=== PATIENT | male | born 1950 | race Caucasian/White ===

== ENCOUNTER → 2016-06-12 | Outpatient (CLI) | payer MEDICAID ==
[~2016-06-12] MED LIST: LIDOCAINE 1% 30 ML SDV ONE; NA BICARBONATE 50 MEQ/50 ML VIAL ONE; [UNRECOGNIZED DRUG - MIXTURE] IT ONE
[2016-06-12 11:31] LABS: PROTEIN, CSF 91 mg/dL (12-60)
[2016-06-12 11:59] LABS: CSF APPEARANCE CLEAR (CLEAR); CSF COLOR COLORLESS (COLORLESS); CSF SUPERNATANT COLORLESS (COLORLESS); WBC, CSF 19 /mm3 (0-5)
--- NOTE | 2016-06-12 16:28 | DX ---
Intrathecal Chemotherapy via Lumbar Puncture Under Fluoroscopic Guidance History: Lymphoma Witnessed Consent: Witnessed informed consent was obtained after the risks, benefits, and alternative s of intrathecal chemotherapy via lumbar puncture under fluoroscopic guidance were explained to the p atient and all questions were answered. Fluoroscopy time: 0.3 minutes. 4.7 mGy. Procedure: Utilizing sterile technique and fluoroscopic guidance the back was prepped in usual fashio n. Lidocaine with bicarbonate was used for local anesthesia. A 22-gauge spinal needle was advanced in to the left L4-L5 interlaminar space with clear cerebrospinal fluid identified. A total of 10 mL of c erebrospinal fluid was placed in four tubes and sent to cytology for analysis. Intrathecal cytarabine liposome 50 mg chemotherapy was slowly administered. Needle was removed. Patient tolerated the proce dure well without complications. Discharge instructions were given. Impression: 1. Successful intrathecal chemotherapy via lumbar puncture under fluoroscopic guidance. 2. Cerebrospinal fluid was clear. 3. No immediate complications. Crosscutting Measure #226: Current tobacco user: Yes. Patient was told to speak with primary care pro vider about cessation counseling.
[2016-06-13 15:57] LABS: FINAL DIAGNOSIS See Comments (()); MICROSCOPIC DESCRIPTION See Comments (()); SPECIAL STUDIES See Comments (())
== END ==
LOC: FIMAGING 08:30
PROVIDERS: ATTEND Internal Medicine Hematology & Oncology
PROC: 009U3ZX Drainage of Spinal Canal, Percutaneous Approach, Diagnostic (ICD-10-PCS; principal; 2016-06-12)
PROC: 3E0R305 Introduction of Other Antineoplastic into Spinal Canal, Percutaneous Approach (ICD-10-PCS; 2016-06-12)
DX: Z51.11 Encounter for antineoplastic chemotherapy (principal); C85.90 Non-Hodgkin lymphoma, unspecified, unspecified site; Z01.812 Encounter for preprocedural laboratory examination
CPT/HCPCS: 85060-90; 88184-90; 88185-91; J9098

== ENCOUNTER 2016-06-30 09:59 | Inpatient (IN) | payer MEDICAID ==
[2016-06-30 11:21] LABS: % IMMATURE GRANULYOCYTES 0.3 % (0.0-1.1); ABSOLUTE IMMATURE GRANULOCYTES 0.02 10^3/uL (0.00-0.10); ADD DIFF? NO; ADD MORPH? NO; ADD SCAN? NO; ATYPICAL LYMPHOCYTE FLAG 0 (0-99); FRAGMENT RBC FLAG 10 (0-99); HEMATOCRIT 41.9 % (40.0-51.0); HEMOGLOBIN 14.9 g/dL (13.7-17.5); LEFT SHIFT FLG 0 (0-99); LIPEMIA HEMOLYSIS FLAG 90 (0-99); MEAN CELL HEMOGLOBIN 34.9 pg (27.9-34.1); MEAN CELL HEMOGLOBIN CONCENTR. 35.6 g/dL (32.4-36.7); MEAN CELL VOLUME 98.1 fL (81.5-99.8); MEAN PLATELET VOLUME 9.5 fL (8.7-11.7); PLATELET CLUMPS FLAG 0 (0-99); PLATELET COUNT 240 10^3/uL (150-400); RED BLOOD CELL COUNT 4.27 10^6/uL (4.40-6.38); RED CELL DISTRIBUTION WIDTH 14.8 % (11.5-15.2)
[2016-06-30] MEDS ORDERED: LIDOCAINE 1% 30 ML SDV ONE (11:23)
[2016-06-30] MEDS ORDERED: NA BICARBONATE 50 MEQ/50 ML VIAL ONE (11:24)
[2016-06-30 11:44] LABS: APTT 22.9 SEC (23.0-38.0)
[2016-06-30 12:03] LABS: ANION GAP 6 mEq/L (8-16); CALCIUM 9.2 mg/dL (8.5-10.4); CARBON DIOXIDE 27 mEq/l (22-31); CHLORIDE 106 mEq/L (97-110); CREATININE 0.6 mg/dL (0.7-1.3); GLOMERULAR FILTRATION RATE > 60; GLUCOSE 98 mg/dL (70-100); POTASSIUM 4.6 mEq/L (3.5-5.2); SODIUM 139 mEq/L (134-144)
[2016-06-30 12:06] LABS: PROTIME(PATIENT) 13.1 SEC (12.0-15.0)
[2016-06-30] MEDS ORDERED: [UNRECOGNIZED DRUG - MIXTURE] IT ONE (12:30)
[2016-06-30] MEDS: SODIUM BICARBONATE 150 MEQ in D5W 1,000 ML IV SCH ×2 (13:44→22:22)
[2016-06-30] MEDS ORDERED: ACETAMINOPHEN 325 MG TAB PO SCH (13:45)
[2016-06-30] MEDS ORDERED: ACETAMINOPHEN 325 MG TAB PO PRN (13:50)
[2016-06-30] MEDS ORDERED: ONDANSETRON 4 MG/2 ML VIAL IVP PRN (13:50)
[2016-06-30] MEDS ORDERED: ONDANSETRON DISINTEGRATING 4 MG TAB PO PRN (13:50)
[2016-06-30] MEDS ORDERED: RITUXIMAB IV SCH (14:00)
[2016-06-30] MEDS ORDERED: NS IV SCH ×2 (14:00→22:00)
[2016-06-30 14:18] LABS: CSF APPEARANCE CLEAR (CLEAR); CSF COLOR COLORLESS (COLORLESS); WBC, CSF 0 /mm3 (0-5)
--- NOTE | 2016-06-30 14:23 | PDGENHP ---
History and Physical - Chief Complaint LLE pain and swelling - History of Present Illness 65 yo male with h/o diffuse large B cell lymphoma presents to hospital for direct admission due to increasing pain and swelling of LLE. He had a CT in 2016 which showed increasing LAD, worse in the left groin. Over the past 3 days , this has become much more painful with LLE swelling. No fevers or chills. He is directly admitted from the [facility] to start inpatient chemotherapy. History Information - Allergies/Home Medication List Allergies/Adverse Reactions: hydrocodone bitartrate [From Vicodin] Allergy (Intermediate, Verified 05/03/16 17:01) Rash ibrutinib [From Imbruvica] Allergy (Mild, Verified 05/03/16 17:01) Rash Home Medications: Ascorbic Acid [Vitamin C 500 mg (*)] 500 mg PO DAILY 06/30/16 [Last Taken ] Cyanocobalamin [Vitamin B12 (*)] 1,000 mcg PO DAILY 06/30/16 [Last Taken ] Gabapentin [Neurontin] 600 mg PO QID 06/30/16 [Last Taken 06/30/16] Herbals/Supplements -Info Only 1 ea PO DAILY 06/30/16 [Last Taken 06/30/16] Vitamin B Complex [B Complex] 1 each PO DAILY 06/30/16 [Last Taken 06/30/16] I have personally reviewed and updated: family history, medical history, social history, surgical history - Past Medical History Additional medical history: Lymphoma, waldenstrom's macroglobulinemia, Vit B12 deficiency - Surgical History Reports: no pertinent surgical hx - Family History Additional family history: father of MA - Social History Smoking Status: Former smoker Drug Use: None Review of Systems ROS: 10pt was reviewed & negative except for what was stated in HPI & below Physical Exam Temp Pulse Resp BP Pulse Ox 36.5 C 79 14 128/68 H 94 06/30/16 13:52 06/30/16 13:52 06/30/16 13:52 06/30/16 13:52 06/30/16 13:52 Constitutional: no apparent distress Eyes: PERRL Ears, Nose, Mouth, Throat: moist mucous membranes Cardiovascular: regular rate and rhythym, no murmur, rub, or gallop Respiratory: no respiratory distress, no rales or rhonchi Gastrointestinal: normoactive bowel sounds, soft, non-tender abdomen Genitourinary: other (tender palpable mass in left groin) Musculoskeletal: other (LLE with edema, mild posterior erythema) Neurologic: AAOx3 Psychiatric: interacting appropriately Lab Data & Imaging Review 06/30/16 10:55 06/30/16 10:55 WBC 6.94 10^3/uL (3.80-9.50) 06/30/16 10:55 RBC 4.27 10^6/uL (4.40-6.38) L 06/30/16 10:55 Hgb 14.9 g/dL (13.7-17.5) 06/30/16 10:55 Hct 41.9 % (40.0-51.0) 06/30/16 10:55 MCV 98.1 fL (81.5-99.8) 06/30/16 10:55 MCH 34.9 pg (27.9-34.1) H 06/30/16 10:55 MCHC 35.6 g/dL (32.4-36.7) 06/30/16 10:55 RDW 14.8 % (11.5-15.2) 06/30/16 10:55 Plt Count 240 10^3/uL (150-400) 06/30/16 10:55 MPV 9.5 fL (8.7-11.7) 06/30/16 10:55 Neut % (Auto) 78.5 % (39.3-74.2) H 06/30/16 10:55 Lymph % (Auto) 6.5 % (15.0-45.0) L 06/30/16 10:55 Cedar % (Auto) 12.7 % (4.5-13.0) 06/30/16 10:55 Eos % (Auto) 1.4 % (0.6-7.6) 06/30/16 10:55 Baso % (Auto) 0.6 % (0.3-1.7) 06/30/16 10:55 Nucleat RBC Rel Count 0.0 % (0.0-0.2) 06/30/16 10:55 Absolute Neuts (auto) 5.45 10^3/uL (1.70-6.50) 06/30/16 10:55 Absolute Lymphs (auto) 0.45 10^3/uL (1.00-3.00) L 06/30/16 10:55 Absolute Monos (auto) 0.88 10^3/uL (0.30-0.80) H 06/30/16 10:55 Absolute Eos (auto) 0.10 10^3/uL (0.03-0.40) 06/30/16 10:55 Absolute Basos (auto) 0.04 10^3/uL (0.02-0.10) 06/30/16 10:55 Absolute Nucleated RBC 0.00 10^3/uL (0-0.01) 06/30/16 10:55 Immature Gran % 0.3 % (0.0-1.1) 06/30/16 10:55 Immature Gran # 0.02 10^3/uL (0.00-0.10) 06/30/16 10:55 PT 13.1 SEC (12.0-15.0) 06/30/16 10:55 INR 1.00 (0.83-1.16) 06/30/16 10:55 APTT 22.9 SEC (23.0-38.0) L 06/30/16 10:55 Sodium 139 mEq/L (134-144) 06/30/16 10:55 Potassium 4.6 mEq/L (3.5-5.2) 06/30/16 10:55 Chloride 106 mEq/L (97-110) 06/30/16 10:55 Carbon Dioxide 27 mEq/l (22-31) 06/30/16 10:55 Anion Gap 6 mEq/L (8-16) L 06/30/16 10:55 BUN 15 mg/dL (7-23) 06/30/16 10:55 Creatinine 0.6 mg/dL (0.7-1.3) L 06/30/16 10:55 Estimated GFR > 60 06/30/16 10:55 Glucose 98 mg/dL (70-100) 06/30/16 10:55 Calcium 9.2 mg/dL (8.5-10.4) 06/30/16 10:55 Patient ABO/Rh A POSITIVE 06/30/16 10:55 Antibody Screen NEGATIVE 06/30/16 10:55 Assessment & Plan Assessment: Diffuse large B-cell lymphoma of lymph nodes of multiple sites (Acute 10/15/15) Leg swelling (Acute) History of lymphoma (Chronic 12/18/14) Leg weakness, bilateral (Chronic) Peripheral neuropathy Reviewed recent notes / imaging from [facility]. CT 06/06/2016 showed left groin LAD, which has likely worsened, possibly causing venous compression and contributing to LLE swelling. -Start chemo per oncology -Chest/abd/pelvis CT to assess spread of disease given dramatic increase in LAD of groin -If evidence of femoral vein compression, could consider IR consult / venogram to determine if stent would be helpful. Pt wishes for a stent, but his tumors may respond to chemo -Pain control -Cont gabapentin
[2016-06-30] MEDS ORDERED: NON-FORMULARY NEW DRUG (Gabapentin [Neurontin] 600 MG) PO SCH (16:00)
[2016-06-30] MEDS: DEXAMETHASONE 0.1% 5 ML OPHT.BTL RTEYE SCH ×3 (16:01→21:13)
[2016-06-30] MEDS: GABAPENTIN 300 MG CAP PO SCH ×2 (16:05→21:13)
--- NOTE | 2016-06-30 16:27 | DX ---
Fluoroscopically Guided Lumbar Puncture and Intrathecal Chemotherapy Administration History: 65-year-old with lymphoma . Crosscutting Measure #226: Current tobacco user: No. Comparison: None available. Procedure: Prior to the procedure, the risks and benefits, including headache, infection, and bleedin g were explained to the patient and informed written consent was obtained. An area over L4-L5 was ma rked then prepped and draped in the usual sterile fashion. Buffered lidocaine was administered super ficially for local anesthesia. Using intermittent fluoroscopic observation, a 25-gauge Rao spina l needle was advanced into the thecal sac. 12 mL of clear CSF was obtained and sent for labs. Subseq uently, 50 mg of cytarabine liposome was administered slowly. The needle was removed and a bandage ap plied. The patient tolerated the procedure well with no immediate complications. 0.3 minutes of fluoroscopy were utilized. Dose= 3.3 mGy. Impression: Fluoroscopically guided lumbar puncture and intrathecal chemotherapy administration as ab ove.
[2016-06-30] MEDS ORDERED: IOPAMIDOL (ISOVUE-300) 100 ML BTL IV ONE (17:10)
[2016-06-30] MEDS: SODIUM BICARBONATE 650 MG TAB PO SCH ×2 (18:28→21:13)
--- NOTE | 2016-06-30 18:58 | CT ---
CT Chest, With IV Contrast History: History of lymphoma. Increased lymphadenopathy. Technique: 5-mm helical images were obtained of the chest from the lung apices through the lung base s. This was done postintravenous contrast, with 90 mL Isovue-300 contrast. Multiplanar reformation was performed. Radiation dose reduction technique was utilized. Comparison: Scan from [facility] May 2016. Findings: There is a 12-mm noncalcified pulmonary nodule in the left lower lobe, similar in appearan ce. A calcified pulmonary nodule is seen medially in the right middle lobe, stable in appearance. T here is also a small 4-mm pulmonary nodule in the right upper lobe, stable. No new pulmonary nodule is visualized. There is mild atelectasis or thickening seen along the left major fissure. No eviden ce for a pleural effusion. Left axillary lymph nodes, which have increased in size, the largest measuring 2 cm. There is a soft tissue nodule posterior to the inferior right pulmonary vein, similar in size, measuring 17 mm. The heart size is within normal limits. No evidence for a pericardial effusion. No aggressive osseous lesion. Impression: 1. Increase in size of left axillary lymphadenopathy, which could be progressive lymphoma. 2. Stable soft tissue nodule posterior to the right posteroinferior pulmonary vein. Stable pulmonar y nodules. CT Scan of the Abdomen and Pelvis (With Contrast) Indication: History of lymphoma. Increased lymphadenopathy. Technique: 90 mL of Isovue-300 were given intravenously by machine power injection. Multidetector h elical CT imaging was performed from the diaphragm to the symphysis pubis. Dose reduction techniques were utilized. Comparison: CT from [facility] May 2016. Findings: Abdomen: There is a 12-mm hyperdense lesion within the right lobe of the liver, stable in appearance , likely representing a small hemangioma although nonspecific. The spleen is unremarkable. Both adr enal glands are normal in size and appearance. A small renal cortical cyst is seen at the inferior p ole of the left kidney and the superior pole of the right kidney. There are multiple large periaorti c lymph nodes seen, new or increased on today's exam, with the largest measuring 2.3 cm. Pelvis: Extensive lymphadenopathy is seen along the right and left common iliac vasculature and exte rnal iliacs. This is more predominant on the left than the right. A lymph node measured at the left common iliac artery measures 4.2 cm. Along the external iliac, two large masses, measuring 5.3 cm a nd 3.8 cm. On the right, they measure 2.6 and 2.7 cm. In the left inguinal region is a 3-cm lymph n ode. A soft tissue mass is seen at the left adductor musculature, measuring 4.7 cm. There also appe ars to be a mass just lateral and inferior to the origin of the common hamstring tendon on the left, measuring 3 cm. No evidence for a small bowel obstruction. No evidence for diverticulitis. The la nena endix is normal in size. Mild degenerative disk and degenerative joint disease is seen in the lumbar spine. Impression: Extensive increase in lymphadenopathy within the abdomen and pelvis, more predominant on the left pelvis, left hip and inguinal region, and periaortic, as above. E:allyson
--- NOTE | 2016-06-30 19:55 | GCON ---
[f rep st] CONSULTATION ONCOLOGY/HEMATOLOGY CONSULTATION. REFERRING PHYSICIAN: Cayla Ding MD REASON FOR CONSULTATION: History of diffuse large B-cell lymphoma. PRIMARY ONCOLOGIST: Dr. Jami Quesada. 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 He was on BR from January 02 through March 2015 with a partial response. He then developed progression including left orbital mass and paraneoplastic neurologic problems. He underwent XRT to the orbital mass and then on fro m May 2015, through September of 2015, with a partial response. 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 He started Rituxan plus dos e adjusted to EPOCH, but changed to R-CHOP for tolerability purposes through January of 2016. He t hen had a complete response. Thoughts were considered for transplant. He was undergoing intrathecal methotrexate and cytology had been negative, but flow continued to be positive. He was put on intra thecal DepoCyt which he has been receiving. Most recent CT chest, abdomen and pelvis done May which showed evidence of progressive disease. He was scheduled to come into the hospital elvis ier this week to start on high-dose cytarabine and methotrexate. He is also 2 weeks out from Depo-Cy t treatment. Patient was back and forth whether or not he wanted to continue intrathecal therapy due to neuropathy in left foot and pain in his hip radiating down his legs; however, after further discu ssion with Dr. Quesada, he has decided he does want treatment. He is also trying CBD oil. Currently, the patient is complaining of increased swelling in left groin and pain down the left leg. The left leg is also becoming erythematous and very tender to palpation. He denies any fevers. He denies any shortness of breath or bleeding. He denies any bone pain. PAST MEDICAL HISTORY: Lymphoplasmacytic lymphoma, diffuse large B-cell lymphoma as described per HPI . Several complications including neutropenic fever, previous admissions, moderate severe mucositis, and pancytopenia, suspected stasis dermatitis of left leg previously. He denies any recent antibiot ic use. REVIEW OF SYSTEMS: As per HPI. Otherwise, review of systems is negative. FAMILY HISTORY: Noncontributory. SOCIAL HISTORY: Current tobacco user. CURRENT MEDICATIONS: Reviewed, include acetaminophen, oxycodone, gabapentin, magnesium, and temazepa m. PHYSICAL EXAMINATION: VITAL SIGNS: Today, blood pressure 128/68, pulse of 79, respiration rate 14, satting 94% on room air. Currently, temperature is 36.5. GENERAL: This is a well-appearing man, no t in acute distress, alert and oriented. HEENT: Anicteric sclerae. Oropharynx is clear. Extraocul ar muscles intact. NECK: Supple. HEART: Regular rate and rhythm. CHEST: Clear to auscultation b ilaterally. ABDOMEN: Soft. He is tender to palpation bilateral lower quadrants and especially over the left pelvic inguinal area. He has a tender hard mass in the left pelvic area that was previousl y described on CT. EXTREMITIES: Lower extremities show left lower extremity edema with erythema ass ociated with the left groin. NEUROLOGIC: He is intact, moving all extremities. Denies current visu al changes, headache or other. LABORATORY DATA: Reviewed today and essentially stable. Creatinine 0.6. His labs from lumbar punct ure showed clear CSF, cytology is pending. He had no white blood cells detected. ASSESSMENT AND PLAN: A 65-year-old gentleman with the above-mentioned past medical history, with pro gressive diffuse large B-cell lymphoma, as well as previous positive CSF cytology. Dr. Quesada has nely ctively admitted the patient today for high-dose Elly-C, and methotrexate. This is essentially part B of HyperCVAD. He also had intrathecal chemotherapy with Depo-Cyt today and CSF is being analyzed. The patient is cycle 1, day 1 of chemotherapy today. He will receive Rituxan, methotrexate today. H is urine is being alkalized and we will start methotrexate once urine pH is greater than 7. We will continue to check methotrexate levels until they fall below 0.05. Leucovorin will be initiated 12 ho urs after finishing methotrexate. He will receive cytarabine on days 2 and 3. Depo-Cyt was given to day. Given acute lower extremity swelling, erythema and pain, we will re-image abdomen and pelvis. We nessa l also add on a CT of his chest just to get a baseline of disease status prior to initiating chemothe rapy. I feel it is likely patient's progressive left inguinal lymphadenopathy has caused compression and, therefore, leading to lower extremity swelling. I am hopeful that chemotherapy can reverse thi s and allow him some symptomatic relief. I do not think we have to consider a stent at this time. As far as neuropathy, continue outpatient medications and pain control, and then prophylaxis. He farhan uld be on Lovenox while in the hospital. We will continue to follow along with you. /[id number]/MODL
[2016-06-30] MEDS ORDERED: PALONOSETRON HCL 0.25 MG/5 ML VIAL IVP SCH (21:30)
[2016-06-30] MEDS ORDERED: DEXAMETHASONE SOD PHOSPHATE 10 MG in NS 50 ML IV SCH (21:45)
[2016-06-30] MEDS ORDERED: METHOTREXATE SODIUM IV SCH (22:00)
[2016-07-01] MEDS ORDERED: METHOTREXATE SODIUM IV SCH
[2016-07-01] MEDS: GABAPENTIN 300 MG CAP PO SCH ×4 (06:53→20:40)
[2016-07-01] MEDS: DEXAMETHASONE 0.1% 5 ML OPHT.BTL RTEYE SCH ×2 (06:53→11:16)
[2016-07-01] MEDS: SODIUM BICARBONATE 150 MEQ in D5W 1,000 ML IV SCH ×2 (06:58→22:53)
[2016-07-01] MEDS: CYANO/VITAMIN B12 1000 MCG TAB PO SCH (08:08)
[2016-07-01] MEDS: SODIUM BICARBONATE 650 MG TAB PO SCH ×3 (08:08→23:03)
[2016-07-01] MEDS ORDERED: ENOXAPARIN 40 MG/0.4 ML SYR SC SCH (09:00)
--- NOTE | 2016-07-01 12:21 | HOSPPROG ---
Hospitalist Progress Note Assessment/Plan: B cell lymphoma with increasing LAD causing LLE pain and swelling. CT yesterday confirmed increased size of groin LAD. Started chemo, hopefully this will decrease size of tumor and relieve his venous compression and LLE swelling. -chemo per oncology, received Rituxan yest, will start MTX once urine alkalinized to pH >7 (on bicarb drip and oral tabs), Cytarabine to follow. -leucovorin planned -u/s to r/o DVT and eval for venous compression -cont gabapentin for neuropathy DVT PPLX - Lovenox Full code Dispo - cont inpt Subjective: Pt continues to have LLE pain. No fevers/chills. Difficulty ambulating 2/2 pain. No CP or SOB. No abdominal pain, N/V/D. Tolerating po. Objective: Vital Signs Temp Pulse Resp BP Pulse Ox 36.7 C 77 17 133/62 H 94 07/01/16 07:27 07/01/16 07:27 07/01/16 07:27 07/01/16 07:27 07/01/16 07:29 Laboratory Results 06/30/16 10:55 06/30/16 10:55 06/30/16 07/01/16 07/02/16 05:59 05:59 05:59 Intake Total 2931 Output Total 1900 320 Balance 1031 -320 PT 13.1 SEC (12.0-15.0) 06/30/16 10:55 INR 1.00 (0.83-1.16) 06/30/16 10:55 - Physical Exam Constitutional: no apparent distress Eyes: PERRL Ears, Nose, Mouth, Throat: moist mucous membranes Cardiovascular: regular rate and rhythym Respiratory: no respiratory distress Gastrointestinal: normoactive bowel sounds, soft, non-tender abdomen Skin: warm Musculoskeletal: other (LLE edema from groin down to ankle) Neurologic: AAOx3 Psychiatric: interacting appropriately ICD10 Worksheet Patient Problems: Problems Problem Status Diagnosed 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
[2016-07-01] MEDS ORDERED: HEPARIN 10,000 UNIT/10 ML MDV IVP ONE (13:49)
[2016-07-01] MEDS ORDERED: HEPARIN 10,000 UNIT/10 ML MDV IVP PRN (13:49)
[2016-07-01] MEDS ORDERED: HEPARIN/DEXTROSE 500 ML IV SCH ×2 (14:00→17:00)
--- NOTE | 2016-07-01 14:45 | US ---
Left Lower Extremity Duplex Doppler Indication: Extremity swelling. Known lymphoma and iliac vein compression by CT scan. Evaluate for DV T. Comparison: CT scan from yesterday, and also from October 10, 2015. Technique: Left lower extremity duplex Doppler is performed. Findings: Indeed, patient has extensive DVT, from near the popliteal vein all the way up to the commo n femoral and involving the iliac vein. This is concordant with the yesterday's CT scan finding. Ther e is extensive amount of pelvic extrinsic compression from his lymphadenopathy. Now, there is extensi ve swelling. There is also superficial thrombophlebitis in the great saphenous vein, and some of the clot extends into the profunda. Impression: Extensive left lower extremity DVT involving the proximal vessels, from just above the po pliteal vein to the iliac vein. I believe this is largely due to extrinsic compression of the pelvic iliac system. Comment: I have discussed the above with Dr. Cayla Ding. Chemotherapy, regardless of the degree of shrinkage of lymphadenopathy, is not going to dissolve the existing clot. In addition, even with sig nificant pelvic lymph node decreasing in size, the vessels are diseased over time, and I doubt he is going to open them up completely to the normal size of an iliac vessel. Therefore, he will need to by pass and collateralize from the popliteal vein into the IVC effectively. I doubt this would happen ve ry efficiently, and I think patient has a very high chance of sustaining long-term chronic significan t left lower extremity swelling without any intervention. The downside of intervention, in this patient, of course is risk of bleeding given his lymphoma. I th ink, overall, the risk is low though, if he does not have [employer] lymphoma. Dr. Ding has asked me to consult the patient at this time regarding the above. Further discussion will take place with the patient and Dr. Vogel of oncology. The patient will remain on heparin toda y.
--- NOTE | 2016-07-01 14:51 | SOAPPROG ---
SOAP Progress Note Assessment/Plan: Assessment: Villanueva's transformation of lymphoplasmacytic lymphoma. Patient treated with BR then R-EPOCH (poor tolerance) now admitted for part B HyperCVAD. So far he is tolerating this well. He did get a DepoCyte IT injection on 06/12/2016. New acute DVT R leg due to extrinsic compression of lymph nodes in R groin. There are pros and cons to lytic therapy but in view of the fact that he has a recurrent aggressive lymphoma and we are unsure of what his response will be to current chemo, the likelihood that his platelets will fall in the next 7-10 days , and his desire to preserve as much function in his leg as possible, I think this is the window of opportunity for lytic therapy/stenting. He is aware of the potential for bleeding (including life threatening hemorrhage) with lytic therapy and wishes to proceed. Approximately 60 min was spent in data review, discussion with the patient, and in care coordination with Dr. Gill and Toña. Plan: - TPA/Stent per Dr. Gill - Continue chemotherapy Subjective: Minor diarrhea. No N/V. L leg hurts. Objective: Vital Signs Temp Pulse Resp BP Pulse Ox 36.7 C 74 16 141/67 H 91 L 07/01/16 13:00 07/01/16 13:00 07/01/16 13:00 07/01/16 13:00 07/01/16 13:00 Laboratory Results 06/30/16 10:55 06/30/16 10:55 06/29/16 06/30/16 07/01/16 23:59 23:59 23:59 Intake Total 668 2263 Output Total 1900 820 Balance -1232 1443 PT 13.1 SEC (12.0-15.0) 06/30/16 10:55 INR 1.00 (0.83-1.16) 06/30/16 10:55 Physical Exam - Physical Exam General Appearance: alert, mild distress Respiratory: lungs clear Cardiac/Chest: regular rate, rhythm Abdomen: distended Extremities: other (swollen L leg. ) Neuro/Psych: alert, oriented x 3 ICD10 Worksheet Patient Problems: Problems Problem Status Diagnosed 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
[2016-07-01] MEDS: DEXAMETHASONE 0.1% 5 ML OPHT.BTL EACHEYE SCH ×2 (15:39→21:00)
[2016-07-01 15:46] LABS: FINAL DIAGNOSIS See Comments (()); MICROSCOPIC DESCRIPTION See Comments (()); SPECIAL STUDIES See Comments (())
[2016-07-01] MEDS ORDERED: HEPARIN/DEXTROSE 25,000 UNIT/500 ML BAG IV ONE (16:34)
[2016-07-01] MEDS ORDERED: LORazepam 1 MG TAB PO PRN (16:41)
--- NOTE | 2016-07-01 16:41 | POSTOPPROG ---
Post Op Note Date of Operation: 07/01/16 Surgeon: Madhavi Gill Anesthesia: Local (Specify) (lidocaine) Pre-op Diagnosis: LLE DVT Post-op Diagnosis: same Indication: acute pain and swelling Procedure: venogram with TPA lysis Findings: Acute clot FV to iliac vein, LT, with long iliac stenosis Inf/Abcess present in the surg proc area at time of surgery?: No Depth: Superfical (Skin SQ) Complications: none
[2016-07-01] MEDS ORDERED: ALTEPLASE 5 MG in NS 100 ML IVP SCH (17:00)
[2016-07-01] MEDS ORDERED: IOPAMIDOL (ISOVUE-300) 100 ML BTL IV ONE (17:11)
[2016-07-01 17:54] LABS: INR 1.03 (0.83-1.16); PROTIME(PATIENT) 13.4 SEC (12.0-15.0)
[2016-07-01 17:56] LABS: APTT 23.9 SEC (23.0-38.0)
[2016-07-01] MEDS: ALTEPLASE 5 MG in NS 100 ML IV SCH (21:07)
[2016-07-01] MEDS: oxyCODONE IR 5 MG TAB PO PRN (21:08)
[2016-07-01] MEDS ORDERED: CYTARABINE IV SCH (22:00)
[2016-07-01] MEDS ORDERED: NS IV SCH ×2 (22:00)
[2016-07-02] MEDS: ALTEPLASE 5 MG in NS 100 ML IV SCH ×2 (01:21→05:51)
[2016-07-02] MEDS: DEXAMETHASONE 0.1% 5 ML OPHT.BTL EACHEYE SCH ×4 (04:41→23:31)
[2016-07-02] MEDS: oxyCODONE IR 5 MG TAB PO PRN (04:41)
[2016-07-02] MEDS: GABAPENTIN 300 MG CAP PO SCH ×4 (04:41→23:30)
[2016-07-02 04:43] LABS: % IMMATURE GRANULYOCYTES 0.1 % (0.0-1.1); ABSOLUTE IMMATURE GRANULOCYTES 0.01 10^3/uL (0.00-0.10); ADD DIFF? NO; ADD MORPH? NO; ADD SCAN? NO; ATYPICAL LYMPHOCYTE FLAG 0 (0-99); FRAGMENT RBC FLAG 0 (0-99); HEMOGLOBIN 12.9 g/dL (13.7-17.5); LEFT SHIFT FLG 0 (0-99); LIPEMIA HEMOLYSIS FLAG 90 (0-99); MEAN CELL HEMOGLOBIN 35.2 pg (27.9-34.1); MEAN CELL HEMOGLOBIN CONCENTR. 35.8 g/dL (32.4-36.7); MEAN CELL VOLUME 98.4 fL (81.5-99.8); MEAN PLATELET VOLUME 9.6 fL (8.7-11.7); PLATELET CLUMPS FLAG 10 (0-99); PLATELET COUNT 170 10^3/uL (150-400); RED BLOOD CELL COUNT 3.66 10^6/uL (4.40-6.38); RED CELL DISTRIBUTION WIDTH 14.5 % (11.5-15.2)
[2016-07-02 04:53] LABS: APTT 33.4 SEC (23.0-38.0)
[2016-07-02] MEDS: SODIUM BICARBONATE 150 MEQ in D5W 1,000 ML IV SCH ×3 (06:03→23:32)
[2016-07-02] MEDS: DEXAMETHASONE SOD PHOSPHATE 10 MG in NS 50 ML IV SCH (09:17)
[2016-07-02] MEDS: SODIUM BICARBONATE 650 MG TAB PO SCH ×3 (09:17→23:31)
[2016-07-02] MEDS: CYANO/VITAMIN B12 1000 MCG TAB PO SCH (09:17)
--- NOTE | 2016-07-02 09:21 | HOSPPROG ---
Hospitalist Progress Note Assessment/Plan: B cell lymphoma with increasing LAD, causing LLE pain and swelling. He had previously been treating his lymphoma with cannabis oil, but with increased LAD and pain, he opted to resume chemo and was admitted for management. CT on admission confirmed increased size of groin LAD. Started chemo inpt. -chemo per oncology, received Rituxan, followed by MTX, Cytarabine to follow. -leucovorin planned LLE DVT - Extensive, most certainly due to compressive adenopathy of LLE. Discussed with IR and Onc, started tPa lysis yesterday. -return to IR today for venogram, possible stenting Peripheral neuropathy - continue gabapentin, change to QID Full code Dispo - cont inpt, ICU while on tPa Subjective: PT feels okay. Still some pain in LLE. No fevers/chills. Able to ambulate with difficulty. No CP or SOB. Slept poorly last night. Objective: Vital Signs Temp Pulse Resp BP Pulse Ox 36.9 C 60 11 L 123/52 H 96 07/02/16 04:00 07/02/16 06:00 07/02/16 06:00 07/02/16 06:00 07/02/16 06:00 Laboratory Results 07/02/16 04:35 06/30/16 10:55 07/01/16 07/02/16 07/03/16 05:59 05:59 05:59 Intake Total 2931 3700 Output Total 1900 2870 Balance 1031 830 PT 13.4 SEC (12.0-15.0) 07/01/16 16:52 INR 1.03 (0.83-1.16) 07/01/16 16:52 - Physical Exam Constitutional: no apparent distress Eyes: PERRL Ears, Nose, Mouth, Throat: moist mucous membranes Cardiovascular: regular rate and rhythym Respiratory: no respiratory distress, clear to auscultation Gastrointestinal: normoactive bowel sounds, soft, non-tender abdomen Skin: warm Musculoskeletal: other (LLE with persistent edema, left groin LAD with tenderness, no warmth or erythema, 2+ DP's) Neurologic: AAOx3 Psychiatric: interacting appropriately ICD10 Worksheet Patient Problems: Problems Problem Status Diagnosed 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
[2016-07-02] MEDS ORDERED: LEUCOVORIN CALCIUM IV SCH ×2 (10:00→16:00)
[2016-07-02] MEDS ORDERED: NS IV SCH ×2 (10:00→16:00)
[2016-07-02] MEDS ORDERED: FLUMAZENIL 0.5 MG/5 ML MDV IVP ONE (10:14)
[2016-07-02] MEDS ORDERED: NALOXONE HCL 0.4 MG/ML INJ ONE (10:14)
[2016-07-02] MEDS ORDERED: fentaNYL 100 MCG/2 ML INJ ONE ×3 (10:15→11:50)
[2016-07-02] MEDS ORDERED: MIDAZOLAM 2 MG/2 ML VIAL ONE ×2 (10:15→11:31)
[2016-07-02] MEDS: CYTARABINE IV SCH ×2 (10:24→23:59)
[2016-07-02] MEDS: NS IV SCH ×2 (10:24→23:59)
[2016-07-02] MEDS ORDERED: IOPAMIDOL (ISOVUE-300) 100 ML BTL IV ONE ×2 (10:32→12:59)
[2016-07-02] MEDS ORDERED: LEUCOVORIN 25 MG PO ONE (12:00)
[2016-07-02] MEDS ORDERED: HEPARIN 10,000 UNIT/10 ML MDV IVP PRN (12:20)
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
[2016-07-02] MEDS: HYDROmorphONE/DILAUDID 1 MG/ML SYR IVP PRN ×3 (13:05→20:16)
[2016-07-02 13:29] LABS: % IMMATURE GRANULYOCYTES 0.2 % (0.0-1.1); ABSOLUTE IMMATURE GRANULOCYTES 0.02 10^3/uL (0.00-0.10); ADD DIFF? NO; ADD MORPH? NO; ADD SCAN? NO; ATYPICAL LYMPHOCYTE FLAG 0 (0-99); FRAGMENT RBC FLAG 0 (0-99); HEMATOCRIT 38.8 % (40.0-51.0); HEMOGLOBIN 13.7 g/dL (13.7-17.5); LEFT SHIFT FLG 0 (0-99); LIPEMIA HEMOLYSIS FLAG 90 (0-99); MEAN CELL HEMOGLOBIN 34.8 pg (27.9-34.1); MEAN CELL HEMOGLOBIN CONCENTR. 35.3 g/dL (32.4-36.7); MEAN CELL VOLUME 98.5 fL (81.5-99.8); MEAN PLATELET VOLUME 9.7 fL (8.7-11.7); PLATELET CLUMPS FLAG 10 (0-99); PLATELET COUNT 164 10^3/uL (150-400); RED BLOOD CELL COUNT 3.94 10^6/uL (4.40-6.38); RED CELL DISTRIBUTION WIDTH 14.6 % (11.5-15.2)
[2016-07-02] MEDS ORDERED: HEPARIN/DEXTROSE 500 ML IV SCH (13:30)
[2016-07-02 13:36] LABS: INR 1.27 (0.83-1.16); PROTIME(PATIENT) 15.9 SEC (12.0-15.0)
[2016-07-02 13:37] LABS: APTT 31.3 SEC (23.0-38.0)
--- NOTE | 2016-07-02 13:37 | IR ---
Lysis Follow-Up Venography Iliac Stent Placement, Left Indication: 18 hours post TPA lysis for extensive left lower extremity acute thrombus. High-grade rojas ac compression due to extrinsic masses from lymphoma. Informed Consent: Obtained from the patient. Risks and benefits were discussed. Crosscutting Measure: Patient's current list of medications including all known prescriptions, over- the-counters, herbals, and vitamin/mineral/dietary supplements are reviewed. Medications' name, dosa ge, frequency, and route of administration are confirmed. The patient is a non-smoker. Prophylactic Antibiotic: Cefazolin was not ordered and administered for antimicrobial prophylaxis be cause it was not medically necessary. VTE Prophylaxis: There is not an order for VTE prophylaxis to be given within 24 hours of the proced ure end time. VTE prophylaxis was not given because it was not medically necessary. Technique: Patient is placed in prone position. A "timeout" procedure was performed to identify the correct patient and the correct procedure. 1% Xylocaine was used for local anesthetic. All elemen ts of maximal sterile barrier technique including cap, mask, sterile gown, sterile gloves, large ster ile sheet, hand hygiene, and 2% chlorhexidine for cutaneous antisepsis followed. Existing infusion catheter is removed over an exchange length Amplatz wire. A long, 7-Eritrean, 55 cm v ascular sheath is advanced after local anesthetics. Venogram is performed through the sidearm of the sheath, as the sheath is pulled down. This shows near complete clot resolution in the femoral system, high-grade stenoses with irregularities in the iliac system consistent with extrinsic compression. First, a 14 x 16 mm LifeStent is loaded and deployed at the junction of the IVC and the left common i liac vein. Post deployment, there is excellent immediate opening of the common iliac stricture. Howev er, within about less than a minute, the stricture returns because of the degree of extrinsic felicia donavan. I continued to complete the stenting process for the rest of the iliac vein using another 14 mm x 40 cm LifeStent, extending down to the external iliac vein. This covered the second area of stricture. There continues to be irregularity at the bottom stent, while the top stent is mostly crimped at the midportion. Subsequently, a third balloon expandable stiff stent, atrium, 10 x 38 mm was loaded and advanced to o verlap the high-grade common iliac stricture. With balloon deployment of this, followed by reangiopla sty using a 12 x 40 mm balloon, this iliac stricture resolved. I did some additional work at the lower stent at the external iliac segment. The distal portion of th e stent opened up nicely with initial deployment. It is the rest of it that continues to have some ir regularity. It is hard for me to figure out whether this is thrombus, mass, and clot that is trapped between the wall and the stent or dissection. Nonetheless, there is rapid antegrade clearance of any injected contrast.. This location also correlates to near complete absence of the external iliac vein by the CT. There is some very large bulky adenopathy in this location. Again, repeat lower extremity venogram is performed from the level of the knee to the IVC showing rap id antegrade drainage. The overall outflow is significantly improved. What is left or trapped behind the lower external iliac stent will dissolve over time with anticoagulation. A branch of the iliac ve in that was previously there on the pre-stent deployment venogram, persisted on the post-stent deploy ment, which indirectly indicates intraluminal placement of the stent. Catheters and wires were removed. Hemostasis was obtained using pressure holding. There is significan t decrease collateralization in the humeral level on the post venogram, indicating sufficient antegra de drainage via this channel that is established. Patient tolerated the procedure well. Medication: 1.5 mg Versed, 250 mcg fentanyl, 1115 to 1214. Fluoroscopy: 11.8 minutes, 32 images. Impression: 1. Complete clot lysis. 2. High-grade stricture that was resistant to self-expanding stent placement at the iliac system, sub sequently supported with placement of a balloon expandable stiff covered stent. 3. Patient received a total of three stents between the common iliac vein and the external iliac vein . 4. Rapid antegrade drainage. This should help the swelling significantly. Comment: 1. Patient does have some low-grade left lower lobe abdominal pain. My threshold for obtaining a nonc ontrast CT scan of the abdomen and pelvis would be low for evaluation of retroperitoneal bleed. This is because some tissue blush was seen on the initial venogram that comes from branches off of the ex ternal iliac vein. 2. In addition, to optimize drainage, sequential compression stocking device while patient is in bed is recommended. 3. Last but not least, full system anticoagulation with heparin is also recommended for this short ti me while transitioning to a long-term anticoagulation method, as patient is at a high risk for recurr ence of clot within the next few weeks.
--- NOTE | 2016-07-02 14:26 | SOAPPROG ---
[facility] Progress Note Assessment/Plan: Assessment: This is a highly complex clinical situation. The patient requires critical care monitoring at this time. Villanueva's transformation of lymphoplasmacytic lymphoma. Patient treated with BR then R-EPOCH (poor tolerance) now admitted for part B HyperCVAD. So far he is tolerating this well. He did get a DepoCyte IT injection on 06/12/2016. High dose methotrexate finished at ~0140 last night. He received his loading dose of leucovorin (50mg) at ~2PM today. He will continue with leucovorin q6h as ordered. He will get his first methotrexate level tonight at ~ midnight. New acute DVT R leg due to extrinsic compression of lymph nodes in R groin. He had ~18 hours of lytic therapy. He then had 3 stents placed. Drainage is now good per report. He has increased abdominal and L groin pain. We will watch him in the ICU today and have a low threshold for reimaging for a retroperitoneal bleed. Will watch serial hematocrits. He will need jail anticoagulation with coumadin. Plan: - watch in ICU for now - serial H/H - Leucovorin as ordered - Monitor MTX levels Subjective: c/o pain in LLQ abdomen and L groin Objective: Vital Signs Temp Pulse Resp BP Pulse Ox 37.2 C 57 L 12 149/59 H 99 07/02/16 08:00 07/02/16 13:59 07/02/16 13:59 07/02/16 13:59 07/02/16 13:59 Laboratory Results 07/02/16 13:15 06/30/16 10:55 06/30/16 07/01/16 07/02/16 23:59 23:59 23:59 Intake Total 668 2263 3700 Output Total 1900 1370 1800 Balance -7618 815 6830 PT 15.9 SEC (12.0-15.0) H 07/02/16 13:15 INR 1.27 (0.83-1.16) H 07/02/16 13:15 Physical Exam - Physical Exam General Appearance: moderate distress Respiratory: lungs clear Cardiac/Chest: regular rate, rhythm Abdomen: distended, other (mild to moderate tenderness without rebound tenderness) Extremities: swelling (L leg swollen. 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
[2016-07-02 15:44] LABS: HEMATOCRIT 38.6 % (40.0-51.0); HEMOGLOBIN 13.6 g/dL (13.7-17.5)
[2016-07-02] MEDS: PROMETHAZINE HCL 25 MG/ML INJ IVP PRN (19:08)
--- NOTE | 2016-07-02 19:54 | CT ---
"CT Abdomen and Pelvis (Without Contrast) July 02, 2016 at 1811 Hours History: Left abdominal pain, suspect retroperitoneal hemorrhage. Lymphoma. Comparison: CT dated June 30, 2016. Technique: Spiral images were acquired from the upper abdomen through the pelvis without intravenous or oral contrast which limits the study. Dose reduction techniques were utilized. Findings Abdomen: Small pericardial effusion. New small bilateral pleural effusions with bilateral lower lobe passive atelectasis. Minimal ascites around the liver. No hepatosplenomegaly. No adrenal enlargement. Contrast in both kid neys from recent angiogram. Moderate atherosclerotic aorta without aneurysm. No bowel obstruction. No peripancreatic fluid. Limited due to lack of intravenous contrast. Oral contrast from prior study wi thin the colon. A left-sided retroperitoneal hemorrhage anterior to the left psoas muscle, measuring 7 x 4 cm in axia l dimension and 11 cm in cephalocaudal dimension. Persistent left paraaortic retroperitoneal adenopat hy and left iliac pelvic adenopathy again noted, consistent with lymphoma. A left lower lobe 12 mm pu lmonary nodule again noted. Pelvis: Contrast in the bladder. A left inferior vena cava and common iliac vein stents noted with s evere stenosis of the left external iliac vein component on image 226 of series 4. Bilateral external iliac adenopathy and common iliac adenopathy again identified. Left inguinal adenopathy also noted. Left proximal thigh edema noted. Impression: 1. Left retroperitoneal hematoma, measuring 7 x 4 x 11 cm anterior to the left psoas muscle and left ureter. 2. Retroperitoneal and pelvic lymphadenopathy consistent with lymphoma. 3. Atherosclerotic aorta without aneurysm. 4. Left external iliac stent appears compressed. 5. Left lower lobe 12 mm pulmonary nodule which is nonspecific. Consider nuclear medicine PET scan im aging when the patient's medical condition permits. Patient's nurse, Medina notified at 1855 hours. Findings and recommendations discussed with Refugio La MD at 1904 hours on July 02, 2016. Final report concurs with initial preliminary interpretation. Attention: This CT examination is specifically designed to evaluate patients who are clinically susp ected of having acute obstructive uropathy. This examination does not use radiographic contrast, and as such, provides only a limited evaluation of the abdomen, pelvis, and retroperitoneum. If there i s further clinical suspicion for pathological conditions other than obstructive uropathy, a complete CT evaluation of the abdomen and pelvis utilizing intravenous, oral, and rectal contrast should be co nsidered. Dr. Madhavi Gill notified at 1905 hours. A test result has been communicated to a licensed care provider and documented in the [employer] | Critical Result system on 07/02/2016 19:09, Message ID [id number]."
[2016-07-02] MEDS: LEUCOVORIN 25 MG PO SCH ×2 (20:17→23:30)
[2016-07-02] MEDS: LEUCOVORIN 5 MG TAB PO SCH ×2 (20:17→23:29)
[2016-07-02 20:44] LABS: HEMATOCRIT 34.2 % (40.0-51.0); HEMOGLOBIN 12.1 g/dL (13.7-17.5)
[2016-07-02] MEDS ORDERED: HYDROmorphONE/DILAUDID 2 MG/ML SYR ONE (21:29)
[2016-07-02] MEDS ORDERED: CEFAZOLIN 2 GM/DEXTROSE/100 ML BAG IV ONE (22:31)
--- NOTE | 2016-07-02 22:33 | GCON ---
[f rep st] CONSULTATION CRITICAL CARE DATE OF CONSULTATION: 07/02/2016 REASON FOR CONSULTATION: Deep venous thrombosis in the left lower extremity, B-cell lymphoma. HISTORY: The patient is a pleasant 65-year-old man who has an underlying B-cell lymphoma. He is fol lowed by Oncology. He has had diffuse disease with involvement of the spleen, lymph nodes, orbit, et c. He has been treated with multiple various chemotherapeutic agents. This has included intrathecal chemotherapy. He is now on high-dose cytarabine and methotrexate. He was admitted on 06/30 with in creased swelling in his left groin and leg. He was found to have an extensive deep venous thrombosis . He was taken to Interventional Radiology for tPA lysis which was successful. He also had signific ant obstruction of the femoral vein secondary to compression from a tumor mass. This was stented wit h some difficulty today. Stenting was felt to be successful. He was returned to the intensive care unit off tPA and has been started on a heparin drip. He does report pain in the left groin and lower left quadrant area. This is somewhat cramp-like. He reports some residual pain and discomfort in his left leg. Catheter is now out. He denies any shor tness of breath or chest pain. 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 He denies other chronic medical problems. MEDICATIONS: He was taking various vitamins at home with his only medication being Neurontin. DRUG ALLERGIES: Hydrocodone, ibrutinib. Those are the only 2. SOCIAL HISTORY: The patient does have a partner. She helps care for him. He does smoke cigarettes currently. Significant alcohol is denied. FAMILY HISTORY: Noncontributory. REVIEW OF SYSTEMS: A 10-point review of systems is negative except as outlined above. PHYSICAL EXAMINATION: GENERAL: Reveals a pleasant gentleman who appears to be resting comfortably i n bed. VITAL SIGNS: Blood pressure is 160/60, heart rate 60 with sinus rhythm on the monitor, respi ratory rate is 12. On 2 L, saturations are 99%. HEENT: He appears somewhat pale. Nasal cannula is in place. NECK: There is no lymphadenopathy or thyromegaly to the neck. There is no jugular venou s distention. CHEST: Clear. Breath sounds are diminished at the bases. HEART: Regular in rate an d rhythm. There are no significant murmurs, no gallops. ABDOMEN: Somewhat distended and somewhat f irm. There is tenderness related to the left lower quadrant with fullness appreciated there. The le ft groin is somewhat tender. EXTREMITIES: The left leg is larger than the right by approximately 1 inch. There is mild tenderness over the calf to palpation where his catheter previously resided. NE UROLOGIC: Intact. Pulses are present in the left lower extremity. LABORATORY DATA: Interventional radiology issues are as outlined above. With his stent procedure, t here was opening of the iliac veins above the femoral. There was complete clot lysis. Dr. Gill was c oncerned for the possibility of a retroperitoneal bleed if hematocrit drops or if pain increases sign ificantly. She recommended sequential compression stockings of the left lower extremity to optimize flow and drainage, and full dose anticoagulation with heparin. Chest CT on admission showed axillary adenopathy, as well as a nodule in the right mediastinum. Smal l pulmonary nodules were also noted which were stable. Abdominal and pelvic CT showed significant in crease in lymphadenopathy in the abdomen and pelvis, most prominent on the left side. White blood cell count is 8500, hematocrit 38.8 today with postprocedure hematocrit essentially uncha nged at 38.6. Platelets are 164,000. PT earlier today was 15.9 with a PTT of 31. The patient is cu rrently on heparin and unfractionated heparin level is pending. Basic metabolic panel was within nor mal limits. IMPRESSION: 1. Extensive left lower extremity deep venous thrombosis secondary to compression at the iliac veins . He is status post complete tPA lysis and stent placement with patency of the iliac vein. He is on full-dose anticoagulation and sequential compression device. 2. Progressive B-cell lymphoma, now with lymphoplasmacytic transformation. He is receiving high dos e chemotherapy including intrathecal chemotherapy and methotrexate with leucovorin rescue. He is kwaku ng followed by Oncology. 3. Abdominal/groin pain. This is likely secondary to issues related to his lymphoma. He is being m onitored for the possibility of a retroperitoneal hematoma; however, hematocrit is currently stable a nd, thus, does not suggest an acute significant bleed. He will be followed overnight for this with a low threshold for obtaining a CT scan of the abdomen and pelvis. 4. Metabolic: No issues identified. 5. Chemotherapy. He is receiving high dose chemotherapy including cytarabine, dexamethasone, methot rexate with leucovorin rescue, etc. Urine is being colonized and intravenous fluids are being given. PLAN AND RECOMMENDATIONS: The patient will be kept in the intensive care unit tonight. Serial hemat ocrits will be followed closely. Clinical examination will be followed. If he has a drop in hematoc rit or significant increased pain, then a CT scan of the abdomen/pelvis will be obtained to look for a retroperitoneal bleed. Heparin is being initiated. Sequential compression devices will be used to help increase flow from the left lower extremity. Laboratory will be followed. Further plans and recommendations will be made based on his progress over the next 12-24 hours. /[id number]
[2016-07-02] MEDS: TEMAZEPAM 15 MG CAP PO PRN (23:30)
[2016-07-03 02:40] LABS: HEMATOCRIT 30.8 % (40.0-51.0); HEMOGLOBIN 10.8 g/dL (13.7-17.5)
[2016-07-03 05:51] LABS: HEMATOCRIT 27.7 % (40.0-51.0); HEMOGLOBIN 9.8 g/dL (13.7-17.5)
[2016-07-03] MEDS: PROMETHAZINE HCL 25 MG/ML INJ IVP PRN (06:07)
[2016-07-03] MEDS: GABAPENTIN 300 MG CAP PO SCH ×4 (06:19→20:39)
[2016-07-03] MEDS: LEUCOVORIN 25 MG PO SCH ×4 (06:20→23:54)
[2016-07-03] MEDS: LEUCOVORIN 5 MG TAB PO SCH ×4 (06:21→23:53)
[2016-07-03] MEDS: DEXAMETHASONE 0.1% 5 ML OPHT.BTL EACHEYE SCH ×4 (06:22→20:40)
--- NOTE | 2016-07-03 06:51 | IR ---
Left Iliac Venogram Stent Placement Indication: Patient sustained a retroperitoneal bleed as a result of the TPA lysis and heparinization earlier. Subsequently, his heparin has to be stopped. A noncontrast CT scan was performed to evaluat e his retroperitoneal bleed, and on that, it is noted that the distal portion of his stent in the ext ernal iliac vein is severely pinched due to bulky surrounding adenopathy. This explains the irregular appearance of the contrast column, that was originally thought to be due to trapped clot, at the end of the last procedure. Now the patient is off of heparin, given this high grade anatomic pinch, I feel the patient's chance of re-clotting is almost 100%. If he were to re-clot, he would no longer be a TPA candidate because o f the bleed, and mechanical thrombolysis is much less effective in removing large amount of clot, and patient will be dealing with a bleed and a very swollen leg at that time. Therefore, I made the decision to bring the patient back tonight to further evaluate the stent, and t o extend it if necessary. Informed consent: Obtained from the patient. Risks and benefits were discussed. The above was discus sed in detail with the patient, who expressed understanding and eagerness to proceed, to do anything to resolve his leg swelling. Crosscutting Measure: Patient's current list of medications including all known prescriptions, over-t he-counters, herbals, and vitamin/mineral/dietary supplements are reviewed. Medications' name, dosag e, frequency, and route of administration are confirmed. Patient is a non-smoker. Prophylactic Antibiotic: Ancef 2 g was ordered and administered for antimicrobial prophylaxis. Discontinuation of Prophylactic Antibiotic: Prophylactic antibiotic was given within 4 hours prior t o incision. There was an order to discontinue the antibiotic within 24 hours of procedure end time. VTE Prophylaxis: VTE prophylaxis is not medically necessary for this procedure. Technique: Patient is placed in supine position. A "timeout" procedure was performed to identify the correct patient and the correct procedure. 1% Xylocaine was used for local anesthetic. All elements of maximal sterile barrier technique including cap, mask, sterile gown, sterile gloves, large sterile sheet, hand hygiene, and 2% chlorhexidine for cutaneous antisepsis, followed. When ultrasound is use d, sterile gel and probe covers are used. Ultrasound evaluation of potential access site was performed. After successfully identifying a patent vessel, ultrasound guidance was used to puncture the vessel. A permanent recording was created for t he patient's record. When ultrasound is used, sterile gel and probe covers are used. I decided to approach this from a jugular approach this time. This is because the crimp at the lower end of the stent is so high grade that it was going to be challenging for me to gain intraluminal acc ess from below. Sure enough, exchange length Amplatz wire was caught in a loop at the end of the stent, with the diff iculties encountered in advancing it. 55 cm 8-[place] vascular sheath was advanced down the through th e stents, and with Glidewire and Glidecatheter, the stenosis was traversed, with Glidecatheter eventu ally advanced down to the proximal femoral vein. Biplane fluoroscopy this time was also utilized. Biplane venography performed at this time shows indeed that the access by the Glidecatheter is intral uminal in the femoral vein at the proximal thigh, with branches coming off of it. This gave me confid ence to simply extend the stent below. Because of the extending involving the hip joint, or very close to it, I decided to first put a self- expanding 12 mm stent across the joint, knowing that it would not be strenuous enough in [facility] to resolve the stricture. A 12 x 60 mm self-expanding Lifestent was loaded over exchange length A mplatz wire, and deployed, with its distal tip just at the hip joint. This overlapped the previous st ent. Next, a 10 mm x 37 mm balloon expandable biliary Express stent was loaded, and deployed. During this deployment process, it is very clear that the high grade stenosis is at the junction of the common fe moral vein and the external iliac vein. By placing the stent alone, the pinch on the lateral view was already better. A second 10 mm x 37 mm balloon expandable biliary Express stent was then loaded, and deployed on top of the first one, now completely covering the originally crimped external iliac stented segment. Post stent deployment angioplasty was performed using a 14 mm balloon, since we were out of a 12 mm b alloon this time. The 14 mm balloon is insufflated to only 6 mmHg, expanding the balloon to about a 1 2 mm diameter. A tack down angioplasty was performed throughout the entire course of the stented segm ent. At the last segment in the common iliac vein, the balloon was inflated to 8 mm pressure. With the balloon removed, Glidecatheter was readvanced down to the proximal thigh, and outflow venogr am was performed. This time, there is absolutely no irregularity. No evidence of any trapped clot. Th ere is wide open flow on both AP and lateral projection of the contrast column going from the femoral vein to IVC. Of note, there is also no extraluminal extravasation. Medication: Dilaudid 1.5 mg; 2134 to 2246. Fluoroscopy: 19 minutes, 40 images. Contrast: The total amount contrast used today between both the morning and the evening procedures is 180 mL of Isovue-300. Impression: 1. Complete closure of the distal external iliac stent that was placed earlier today, caused by extri nsic compression by tumor. 2. Extension of the stent now down to the common femoral vein just above the hip joint, using Illumioo nal three stents, both self-expanding and balloon expanding for added radial strength. 3. Now widely patent channel from the leg veins up to IVC without any irregularity whatsoever. This i s confirmed by biplane fluoroscopy. 4. Patient now has the highest chance of remaining clot free off of anticoagulation. Recommendation: 1. Apply compression stocking to both legs. STD device while in bed could be applied outside of the c ompression stocking. 2. Encourage ambulation as long as it is clinically prudent. 3. I suspect the patient will be off of anticoagulation for the amount of time that it takes to stabi lize his retroperitoneal bleed. However, his swelling should be exponentially better in a few days.
[2016-07-03 08:32] LABS: % IMMATURE GRANULYOCYTES 0.6 % (0.0-1.1); ABSOLUTE IMMATURE GRANULOCYTES 0.05 10^3/uL (0.00-0.10); ADD DIFF? NO; ADD MORPH? NO; ADD SCAN? NO; ATYPICAL LYMPHOCYTE FLAG 0 (0-99); FRAGMENT RBC FLAG 0 (0-99); HEMATOCRIT 28.4 % (40.0-51.0); HEMOGLOBIN 10.1 g/dL (13.7-17.5); LEFT SHIFT FLG 10 (0-99); LIPEMIA HEMOLYSIS FLAG 90 (0-99); MEAN CELL HEMOGLOBIN 34.1 pg (27.9-34.1); MEAN CELL HEMOGLOBIN CONCENTR. 35.6 g/dL (32.4-36.7); MEAN CELL VOLUME 95.9 fL (81.5-99.8); MEAN PLATELET VOLUME 8.7 fL (8.7-11.7); PLATELET CLUMPS FLAG 10 (0-99); PLATELET COUNT 157 10^3/uL (150-400); RED BLOOD CELL COUNT 2.96 10^6/uL (4.40-6.38); RED CELL DISTRIBUTION WIDTH 14.5 % (11.5-15.2)
[2016-07-03] MEDS: CYANO/VITAMIN B12 1000 MCG TAB PO SCH (09:00)
[2016-07-03] MEDS: SODIUM BICARBONATE 650 MG TAB PO SCH (09:00)
[2016-07-03 09:02] LABS: ALANINE AMINOTRANSFERASE 53 IU/L (21-72); ALBUMIN 2.6 g/dL (3.5-5.0); ALKALINE PHOSPHATASE 57 IU/L (38-126); ANION GAP 4 mEq/L (8-16); ASPARTATE AMINOTRANSFERASE 62 IU/L (17-59); BILIRUBIN,TOTAL 0.7 mg/dL (0.1-1.4); CALCIUM 7.9 mg/dL (8.5-10.4); CARBON DIOXIDE 37 mEq/l (22-31); CHLORIDE 96 mEq/L (97-110); CREATININE 0.5 mg/dL (0.7-1.3); GLOMERULAR FILTRATION RATE > 60; GLUCOSE 135 mg/dL (70-100); POTASSIUM 3.3 mEq/L (3.5-5.2); SODIUM 137 mEq/L (134-144); TOTAL PROTEIN 4.4 g/dL (6.3-8.2)
[2016-07-03] MEDS: DEXAMETHASONE SOD PHOSPHATE 10 MG in NS 50 ML IV SCH (10:23)
[2016-07-03] MEDS: NS IV SCH ×2 (12:58→23:54)
[2016-07-03] MEDS: CYTARABINE IV SCH ×2 (12:58→23:54)
--- NOTE | 2016-07-03 13:14 | HOSPPROG ---
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 -now on Leucovorin * LLE DVT due to bulky adenopathy compressing vein -s/p tpa with complete clot lysis -multiple stents placed - f/u venogram with wide open flow -okay to hold anticoagulation due to bleeding * Retroperitoneal bleed -stabilized off anti-coagulation * Acute blood loss anemia - H/H stable * Peripheral neuropathy - gabapentin Subjective: no new complaints Objective: Vital Signs Temp Pulse Resp BP Pulse Ox 37.3 C 76 13 118/45 L 95 07/03/16 12:00 07/03/16 12:00 07/03/16 12:00 07/03/16 12:00 07/03/16 12:00 Laboratory Results 07/03/16 08:15 07/03/16 08:15 07/02/16 07/03/16 07/04/16 05:59 05:59 05:59 Intake Total 3700 3386 Output Total 2870 2750 1425 Balance 830 636 -1425 PT 15.9 SEC (12.0-15.0) H 07/02/16 13:15 INR 1.27 (0.83-1.16) H 07/02/16 13:15 - Physical Exam Constitutional: no apparent distress, appears nourished, not in pain Cardiovascular: edema (left leg) Respiratory: no respiratory distress Skin: no rashes or abrasions, no fluctuance, no induration Neurologic: AAOx3, sensation intact bilaterally Psychiatric: interacting appropriately, not anxious, not encephalopathic, thought process linear ICD10 Worksheet Patient Problems: Problems Problem Status Diagnosed 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
[2016-07-03] MEDS ORDERED: PROTOCOL POTASSIUM 1 DOSE MISC PRN (13:15)
[2016-07-03] MEDS: SODIUM BICARBONATE 150 MEQ in D5W 1,000 ML IV SCH ×2 (14:42→22:13)
--- NOTE | 2016-07-03 15:12 | SOAPPROG ---
SOAP Progress Note Assessment/Plan: Assessment: Villanueva's transformation of lymphoplasmacytic lymphoma. Patient treated with BR then R-EPOCH (poor tolerance) now admitted for part B HyperCVAD. So far he is tolerating this well. He did get a DepoCyte IT injection on 06/12/2016. High dose methotrexate finished at ~0140 07/01. He will continue with leucovorin q6h as ordered. First MTX level .09, indicating good clearance. New acute DVT R leg due to extrinsic compression of lymph nodes in R groin. He had ~18 hours of lytic therapy. He then had 3 stents placed. Drainage is now good per report. He has decreased abdominal and L groin pain. Retroperitoneal bleed last night, now off anticoagulation Plan: HD SHERIN to start tonight. cont Leucovorin rescue. Follow left leg and cbc. 07/03/16 15:07 Subjective: Feels ok Objective: Vital Signs Temp Pulse Resp BP Pulse Ox 99.0 F 86 17 119/59 L 90 L 07/03/16 13:11 07/03/16 13:11 07/03/16 13:11 07/03/16 13:11 07/03/16 13:11 Laboratory Results 07/03/16 08:15 07/03/16 08:15 07/02/16 07/03/16 07/04/16 05:59 05:59 05:59 Intake Total 3700 3386 Output Total 2870 2750 2925 Balance 830 636 -2925 PT 15.9 SEC (12.0-15.0) H 07/02/16 13:15 INR 1.27 (0.83-1.16) H 07/02/16 13:15 Physical Exam - Physical Exam General Appearance: alert, no apparent distress Respiratory: lungs clear Cardiac/Chest: regular rate, rhythm Abdomen: normal bowel sounds, non-tender Extremities: swelling (Left thigh and scrotum) ICD10 Worksheet Patient Problems: Problems Problem Status Diagnosed 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
--- NOTE | 2016-07-03 16:55 | SOAPPROG ---
SOAP Progress Note Assessment/Plan: Assessment: LLE DVT: Post lysis and stent placement x 2 yesterday. No signs of recurrent DVT; off anticoagulation. Retroperitoneal bleed: stable with diminishing pain. Lymphoma: continuing on chemo PT/OT: apparently not walking much yet. Plan: Continued application of at least the compression stockings is recommended until fully ambulating. May discontinue STDs when ambulating more. 07/03/16 16:38 Subjective: "Well, you must have done something right because it sure feels a lot better." Objective: Vital Signs Temp Pulse Resp BP Pulse Ox 37.2 C 86 17 119/59 L 90 L 07/03/16 13:11 07/03/16 13:11 07/03/16 13:11 07/03/16 13:11 07/03/16 13:11 Laboratory Results 07/03/16 08:15 07/03/16 08:15 07/02/16 07/03/16 07/04/16 05:59 05:59 05:59 Intake Total 3700 3386 Output Total 2870 2750 3375 Balance 830 636 -3375 PT 15.9 SEC (12.0-15.0) H 07/02/16 13:15 INR 1.27 (0.83-1.16) H 07/02/16 13:15 I can not detect any visible difference in color and tenseness between the two legs currently. LT leg is much less tense than yesterday. Labs noted. HCT stable. 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
[2016-07-03 18:34] LABS: POTASSIUM 3.6 mEq/L (3.5-5.2)
[2016-07-03] MEDS: TEMAZEPAM 15 MG CAP PO PRN (20:40)
[2016-07-04 06:19] LABS: POTASSIUM 3.3 mEq/L (3.5-5.2)
[2016-07-04 06:53] LABS: % IMMATURE GRANULYOCYTES 0.9 % (0.0-1.1); ABSOLUTE IMMATURE GRANULOCYTES 0.06 10^3/uL (0.00-0.10); ADD DIFF? NO; ADD MORPH? NO; ADD SCAN? NO; ATYPICAL LYMPHOCYTE FLAG 0 (0-99); FRAGMENT RBC FLAG 20 (0-99); HEMATOCRIT 22.8 % (40.0-51.0); HEMOGLOBIN 8.1 g/dL (13.7-17.5); LEFT SHIFT FLG 20 (0-99); LIPEMIA HEMOLYSIS FLAG 90 (0-99); MEAN CELL HEMOGLOBIN 34.6 pg (27.9-34.1); MEAN CELL HEMOGLOBIN CONCENTR. 35.5 g/dL (32.4-36.7); MEAN CELL VOLUME 97.4 fL (81.5-99.8); MEAN PLATELET VOLUME 9.5 fL (8.7-11.7); PLATELET CLUMPS FLAG 10 (0-99); PLATELET COUNT 142 10^3/uL (150-400); RED BLOOD CELL COUNT 2.34 10^6/uL (4.40-6.38); RED CELL DISTRIBUTION WIDTH 14.2 % (11.5-15.2)
[2016-07-04 07:55] LABS: ANION GAP 3 mEq/L (8-16); CALCIUM 7.5 mg/dL (8.5-10.4); CARBON DIOXIDE 38 mEq/l (22-31); CHLORIDE 102 mEq/L (97-110); CREATININE 0.5 mg/dL (0.7-1.3); GLOMERULAR FILTRATION RATE > 60; GLUCOSE 123 mg/dL (70-100); SODIUM 143 mEq/L (134-144)
[2016-07-04] MEDS: DEXAMETHASONE 0.1% 5 ML OPHT.BTL EACHEYE SCH ×4 (08:11→21:32)
[2016-07-04] MEDS: GABAPENTIN 300 MG CAP PO SCH ×4 (08:11→21:31)
[2016-07-04] MEDS: LEUCOVORIN 5 MG TAB PO SCH ×4 (08:12→23:42)
[2016-07-04] MEDS: LEUCOVORIN 25 MG PO SCH ×4 (08:12→23:43)
[2016-07-04] MEDS: DEXAMETHASONE SOD PHOSPHATE 10 MG in NS 50 ML IV SCH (08:42)
[2016-07-04] MEDS: CYANO/VITAMIN B12 1000 MCG TAB PO SCH (08:44)
--- NOTE | 2016-07-04 10:04 | SOAPPROG ---
SOAP Progress Note Assessment/Plan: Assessment: Villanueva's transformation of lymphoplasmacytic lymphoma. Patient treated with BR then R-EPOCH (poor tolerance) now admitted for part B HyperCVAD. So far he is tolerating this well. He did get a DepoCyte IT injection on 06/12/2016 and , last csf flow cytometry was negative. High dose methotrexate finished at ~ 0140 07/01. MTX level .04, will d/c leucovorin and hco3-. He completed high dose SHERIN C last night New acute DVT R leg due to extrinsic compression of lymph nodes in R groin. He had ~18 hours of lytic therapy. He then had 3 stents placed. Drainage is now good per report. He has decreased abdominal and L groin pain. Retroperitoneal bleed 07/02, now off anticoagulation Plan: Begin GCSF tomorrow, consider D/C when he is a bit stronger, follow up with Dr Quesada, needs Depo arac every 2 weeks 07/03/16 15:07 07/04/16 09:57 07/04/16 10:30 Subjective: Feels ok, weak Objective: Vital Signs Temp Pulse Resp BP Pulse Ox 98.5 F 93 20 126/60 H 91 L 07/04/16 07:19 07/04/16 07:19 07/04/16 07:19 07/04/16 07:19 07/04/16 07:19 Laboratory Results 07/04/16 05:24 07/04/16 05:24 07/03/16 07/04/16 07/05/16 05:59 05:59 05:59 Intake Total 3385 0393 Output Total 5393 5259 Balance 636 -3062 PT 15.9 SEC (12.0-15.0) H 07/02/16 13:15 INR 1.27 (0.83-1.16) H 07/02/16 13:15 Physical Exam - Physical Exam General Appearance: alert, no apparent distress Respiratory: lungs clear Cardiac/Chest: regular rate, rhythm Abdomen: normal bowel sounds, non-tender Extremities: other (swelling left leg decreased) ICD10 Worksheet Patient Problems: Problems Problem Status Onset History of lymphoma Chronic 12/18/14 Leg weakness, bilateral Chronic Leg swelling Acute Cellulitis Acute Neutropenic fever Acute 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
[2016-07-04] MEDS ORDERED: POTASSIUM CL 20 MEQ TAB ONE (10:54)
[2016-07-04] MEDS ORDERED: POTASSIUM CL 20 MEQ TAB PO ONE (11:30)
[2016-07-04 15:35] LABS: HEMATOCRIT 24.8 % (40.0-51.0); HEMOGLOBIN 8.7 g/dL (13.7-17.5)
[2016-07-04] MEDS ORDERED: LORazepam 1 MG TAB PO PRN (16:25)
--- NOTE | 2016-07-04 16:27 | HOSPPROG ---
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 Hoping to go home in am Objective: Vital Signs Temp Pulse Resp BP Pulse Ox 36.8 C 95 18 124/56 H 89 L 07/04/16 13:45 07/04/16 13:45 07/04/16 13:45 07/04/16 13:45 07/04/16 13:45 Laboratory Results 07/04/16 14:44 07/04/16 05:24 07/03/16 07/04/16 07/05/16 05:59 05:59 05:59 Intake Total 3386 1863 Output Total 2750 4925 1000 Balance 636 -3062 -1000 PT 15.9 SEC (12.0-15.0) H 07/02/16 13:15 INR 1.27 (0.83-1.16) H 07/02/16 13:15 - Physical Exam Constitutional: no apparent distress, appears nourished, not in pain Cardiovascular: regular rate and rhythym, no murmur, rub, or gallop Respiratory: no respiratory distress, no rales or rhonchi, clear to auscultation Gastrointestinal: normoactive bowel sounds, soft, non-tender abdomen, no palpable masses Skin: no rashes or abrasions, no fluctuance, no induration Neurologic: AAOx3, sensation intact bilaterally Psychiatric: interacting appropriately, not anxious, not encephalopathic, thought process linear ICD10 Worksheet Patient Problems: Problems Problem Status Onset Cellulitis Acute 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
[2016-07-04 18:59] LABS: POTASSIUM 4.1 mEq/L (3.5-5.2)
[2016-07-04] MEDS: TEMAZEPAM 15 MG CAP PO PRN (21:31)
[2016-07-04 23:55] VITALS: RESP 18
[2016-07-05] MEDS: LEUCOVORIN 25 MG PO SCH ×2 (05:38→11:54)
[2016-07-05] MEDS: LEUCOVORIN 5 MG TAB PO SCH ×2 (05:38→11:54)
[2016-07-05 06:18] LABS: % IMMATURE GRANULYOCYTES 1.2 % (0.0-1.1); ABSOLUTE IMMATURE GRANULOCYTES 0.08 10^3/uL (0.00-0.10); ADD DIFF? NO; ADD MORPH? NO; ADD SCAN? NO; ATYPICAL LYMPHOCYTE FLAG 0 (0-99); FRAGMENT RBC FLAG 0 (0-99); HEMATOCRIT 23.5 % (40.0-51.0); HEMOGLOBIN 8.4 g/dL (13.7-17.5); LEFT SHIFT FLG 0 (0-99); LIPEMIA HEMOLYSIS FLAG 90 (0-99); MEAN CELL HEMOGLOBIN 35.4 pg (27.9-34.1); MEAN CELL HEMOGLOBIN CONCENTR. 35.7 g/dL (32.4-36.7); MEAN CELL VOLUME 99.2 fL (81.5-99.8); MEAN PLATELET VOLUME 9.5 fL (8.7-11.7); PLATELET CLUMPS FLAG 20 (0-99); PLATELET COUNT 121 10^3/uL (150-400); RED BLOOD CELL COUNT 2.37 10^6/uL (4.40-6.38); RED CELL DISTRIBUTION WIDTH 14.2 % (11.5-15.2)
[2016-07-05 06:42] LABS: ANION GAP 1 mEq/L (8-16); CALCIUM 8.2 mg/dL (8.5-10.4); CARBON DIOXIDE 32 mEq/l (22-31); CHLORIDE 107 mEq/L (97-110); CREATININE 0.5 mg/dL (0.7-1.3); GLOMERULAR FILTRATION RATE > 60; GLUCOSE 99 mg/dL (70-100); POTASSIUM 4.5 mEq/L (3.5-5.2); SODIUM 140 mEq/L (134-144)
[2016-07-05] MEDS: GABAPENTIN 300 MG CAP PO SCH ×3 (07:26→16:16)
[2016-07-05] MEDS: DEXAMETHASONE 0.1% 5 ML OPHT.BTL EACHEYE SCH ×3 (07:26→16:16)
[2016-07-05 08:00] VITALS: BP 132/66; PULSE 80; TEMP 98.1; O2SAT 90
[2016-07-05] MEDS ORDERED: FILGRASTIM-SNDZ 480 MCG/0.8 ML SYR SC SCH (09:00)
[2016-07-05] MEDS: CYANO/VITAMIN B12 1000 MCG TAB PO SCH (09:14)
--- NOTE | 2016-07-05 09:51 | PDIAF ---
- Diagnosis Diagnosis: DVT Code Status: Full Code - Medication Management Discharge Medications: Medications to Continue on Transfer Ascorbic Acid [Vitamin C 500 mg (*)] 500 mg PO DAILY 06/30/16 [Last Taken ] Cyanocobalamin [Vitamin B12 (*)] 1,000 mcg PO DAILY 06/30/16 [Last Taken ] Gabapentin [Neurontin] 600 mg PO QID 06/30/16 [Last Taken 06/30/16] Herbals/Supplements -Info Only 1 ea PO DAILY 06/30/16 [Last Taken 06/30/16] Vitamin B Complex [B Complex] 1 each PO DAILY 06/30/16 [Last Taken 06/30/16] Discharge Medications: Refer to the Discharge Home Medication list for PRN reason. - Orders Services needed: Home Care, Physical Therapy, Occupational Therapy Home Care Face to Face: I certify that this patient was under my care and that I had the required [id number] encounter meeting the encounter requirements on the discharge day. My findings support the fact that the patient is homebound as defined in CMS Chapter 7 Medicare Benefits Manual 30.1.1, The condition of the patient is such that there exists a normal inability to leave home and consequently, leaving home would require a considerable and taxing effort. Diet Recommendation: no restrictions on diet - Follow Up Care Current Providers and Referrals: MALISSA PARADA [Primary Care Provider] -
--- NOTE | 2016-07-05 11:51 | SOAPPROG ---
SOAP Progress Note Assessment/Plan: Assessment: Villanueva's transformation of lymphoplasmacytic lymphoma. Patient treated with BR then R-EPOCH (poor tolerance) now admitted for part B HyperCVAD. So far he is tolerating this well. He did get a DepoCyte IT injection on 06/12/2016 and , last csf flow cytometry was negative. High dose methotrexate finished at ~ 0140 07/01. MTX level .04, will d/c leucovorin and hco3-. He completed high dose SHERIN C last night New acute DVT R leg due to extrinsic compression of lymph nodes in R groin. He had ~18 hours of lytic therapy. He then had 3 stents placed. Drainage is now good per report. He has decreased abdominal and L groin pain. Retroperitoneal bleed 07/02, now off anticoagulation Plan: Home today, will get gcsf at home needs follow up next week, Dr Quesada notified 07/03/16 15:07 07/04/16 09:57 07/04/16 10:30 07/05/16 11:48 Subjective: Feels ok, some neuropathic pain left foot Objective: Vital Signs Temp Pulse Resp BP Pulse Ox 98.1 F 80 18 132/66 H 90 L 07/05/16 07:55 07/05/16 07:55 07/05/16 07:55 07/05/16 07:55 07/05/16 07:55 Laboratory Results 07/05/16 05:45 07/05/16 05:45 07/04/16 07/05/16 07/06/16 05:59 05:59 05:59 Intake Total 1863 1200 Output Total 6652 242 200 Balance -3062 -1225 -200 PT 15.9 SEC (12.0-15.0) H 07/02/16 13:15 INR 1.27 (0.83-1.16) H 07/02/16 13:15 ICD10 Worksheet Patient Problems: Problems Problem Status Onset Cellulitis Acute 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
--- NOTE | 2016-07-05 22:50 | GDS ---
[f rep st] DISCHARGE SUMMARY DISCHARGE DIAGNOSES: 1. Lymphoplasmacytic lymphoma with Villanueva transformation. 2. Left lower extremity deep venous thrombosis due to bulky adenopathy compressing the vein, status post multiple stents and tPA. 3. Retroperitoneal bleed. 4. Acute blood loss anemia. 5. Peripheral neuropathy. HISTORY: The patient is a 65-year-old male with a known history of lymphoma. He had been recently treating it with CBD oil. He presented with left lower extremity swelling, was found to have an ext ensive DVT due to bulky adenopathy compressing the vein. He was admitted to the ICU and given tPA w ith complete lysis of the clot. Dr. Gill stented the area of compression with an excellent result an d no further stenosis noted. He was reinitiated on chemotherapy per Oncology. He completed his first course of therapy as an inp atient. Post tPA, he did develop a significant retroperitoneal bleed, and so anticoagulation had to be held. According to Dr. Gill, it is okay to continue holding anticoagulation indefinitely because his sten ts show wide open flow with no further residual clot and with this obstruction relieved, it is felt his risk for recurrent DVT is low. DISCHARGE MEDICATIONS: Please see computerized record for full detailed list. There are no new med ications given at the time of hospital discharge. He will follow up with Dr. Quesada for further medi cation needs regarding his chemotherapy. ADDITIONAL DISCHARGE INSTRUCTIONS: Follow up with Dr. Quesada for further oncology needs. Less than 30 minutes' time was spent arranging this discharge. /[id number]
== END 2016-07-05 16:37 | disposition home or self-care (01) | DRG 253 ==
LOC: F1N 09:59 → F2N 07-01 15:55 → F1N 07-03 13:03
PROVIDERS: ADMIT Internal Medicine Hematology & Oncology; ATTEND Hospitalist
PROC: 3E0S305 Introduction of Other Antineoplastic into Epidural Space, Percutaneous Approach (ICD-10-PCS; 2016-06-30)
PROC: 3E03317 Introduction of Other Thrombolytic into Peripheral Vein, Percutaneous Approach (ICD-10-PCS; 2016-07-01)
PROC: 067G3DZ Dilation of Left External Iliac Vein with Intraluminal Device, Percutaneous Approach (ICD-10-PCS; principal; 2016-07-02)
PROC: 067D3DZ Dilation of Left Common Iliac Vein with Intraluminal Device, Percutaneous Approach (ICD-10-PCS; principal; 2016-07-02)
DX: I82.422 Acute embolism and thrombosis of left iliac vein (principal); C91.10 Chronic lymphocytic leukemia of B-cell type not having achieved remission; D62 Acute posthemorrhagic anemia; R58 Hemorrhage, not elsewhere classified; G62.9 Polyneuropathy, unspecified; Z72.0 Tobacco use; T45.615A Adverse effect of thrombolytic drugs, initial encounter
CPT/HCPCS: 83520-90; 85060-90; 85520-90; 88184-90; 88185-91; 97116-GP; 97162-GP; 97530-GP; C1725; C1757; C1769; C1876; C1892; C1894; G8978-GP-CK; G8979-GP-CI; J0690; J1170; J1200; J1644; J1650; J2250; J2310; J2469; J2550; J2997; J3010; J9098; J9100; J9260; J9310; Q5101-ZA; Q9967

== ENCOUNTER 2016-07-10 22:48 | Inpatient (IN) | payer MEDICAID ==
[2016-07-10] MEDS ORDERED: NS 1,000 ML IV ONE ×2 (23:28)
--- NOTE | 2016-07-10 23:48 | EDPHY ---
H & P Stated Complaint: L mouth pain Time Seen by Provider: 07/10/16 23:07 HPI/ROS: HPI The patient presents with Fever which has been present since 4 o'clock today. His temperature was as high as 102.5 and improved with Tylenol. He describes feeling generally weak and lightheaded. He feels dehydrated. He has trouble walking because of the neuropathy in his feet. He also reports that his tongue hurts on the left side. He denies any sore throat, cough. He does report very mild dysuria. He was admitted to the hospital from June 30 to . He has lymphoplasmacytic lymphoma and was diagnosed with a left lower extremity DVT due to bulky adenopathy, he received stenting and tPA. He had retroperitoneal bleed associated with this. He is not on anticoagulation currently. He did receive chemotherapy in the hospital. REVIEW OF SYSTEMS Constitutional: No fever, no chills. Eyes: No discharge. ENT: No sore throat. Cardiovascular: No chest pain, no palpitations. Respiratory: No cough, no shortness of breath. Gastrointestinal: No abdominal pain, no vomiting. Genitourinary: No hematuria. Musculoskeletal: No back pain. Skin: No rashes. Neurological: No headache. PMHx: Lymphoma, left lower extremity DVT, peripheral neuropathy, followed by Dr. Quesada Soc Hx: lives at home with his PHYSICAL General Appearance: Alert, no distress Eyes: Pupils equal and round no pallor or injection ENT, Mouth: Mucous membranes dry, he has tenderness of the left lateral aspect of his tongue with a very small superficial ulceration. Respiratory: There are no retractions, lungs are clear to auscultation Cardiovascular: Regular rate and rhythm Gastrointestinal: Abdomen is soft and non-tender, no masses, bowel sounds normal Neurological: A&O, moves all extremities Skin: Warm and dry, no rashes Musculoskeletal: Neck is supple non tender Extremities: symmetrical, full range of motion Psychiatric: [ Patient is oriented X 3, there is no agitation Source: Patient Exam Limitations: No limitations - Personal History Current Tetanus/Diphtheria Vaccine: Yes Current Tetanus Diphtheria and Acellular Pertussis (TDAP): Yes Tetanus Vaccine Date: < 10 years - Medical/Surgical History Hx Asthma: No Hx Chronic Respiratory Disease: No Hx Diabetes: No Hx Cardiac Disease: No Hx Renal Disease: No Hx Cirrhosis: No Hx Alcoholism: No Hx HIV/AIDS: No Hx Splenectomy or Spleen Trauma: Yes Other PMH: [place] in 1977; splenomegely;. 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 - Social History Smoking Status: Former smoker Constitutional: Initial Vital Signs Temperature (C) 37.6 C 07/10/16 22:55 Heart Rate 113 H 07/10/16 22:55 Respiratory Rate 20 07/10/16 22:55 Blood Pressure 112/65 07/10/16 22:55 O2 Sat (%) 96 07/10/16 22:55 O2 Delivery Mode Room Air Allergies/Adverse Reactions: hydrocodone bitartrate [From Vicodin] Allergy (Intermediate, Verified 07/10/16 22:54) Rash ibrutinib [From Imbruvica] Allergy (Mild, Verified 07/10/16 22:54) Rash Home Medications: Medication Instructions Recorded Ascorbic Acid [Vitamin C 500 mg 500 mg PO DAILY 06/30/16 (*)] Cyanocobalamin [Vitamin B12 (*)] 1,000 mcg PO DAILY 06/30/16 Gabapentin [Neurontin] 600 mg PO QID 06/30/16 Herbals/Supplements -Info Only 1 ea PO DAILY 06/30/16 Vitamin B Complex [B Complex] 1 each PO DAILY 06/30/16 Medical Decision Making - Diagnostics Imaging: Chest x-ray two view shows no infiltrate, interpreted by me, radiology interpretation pending. ED Course/Re-evaluation: The patient was given 2 L of normal saline, ibuprofen for his fever. Labs were checked and revealed neutropenia, lactic acid was elevated at 2.9. Patient was not hypotensive.. UA and chest x-ray did not show any sign of infection. His hemoglobin is slightly low at 8.6. Was given cefepime for neutropenic fever. The case was discussed with on-call oncologist Dr. Vogel, he recommended adding on vancomycin because of the patient's possible tongue lesion. Repeat lactate was 0.7. The case was discussed with the hospitalist Dr. Joyce who will admit the patient. I have explained the diagnosis and treatment to the patient and his at the bedside. Differential Diagnosis: This is a 65-year-old male with lymphoma, currently receiving chemotherapy, recent diagnosis of left lower extremity DVT complicated by anemia and retroperitoneal bleed presents from home with fever since 4:00 p.m. today. He is complaining of some tongue pain, however does not appear to have any infection within his oral cavity that I can tell. He feels generally lightheaded and weak. The source of his fever could be urinary tract infection, pneumonia, bacteremia. He very well could be dehydrated or anemic and this could be contributing to his symptoms. - Data Points Laboratory Results: Laboratory Results 07/10/16 23:47 07/10/16 23:47 07/11/16 07/10/16 07/10/16 00:15 23:47 23:47 WBC RBC Hgb Hct MCV MCH MCHC RDW Plt Count MPV Neut % (Auto) Lymph % (Auto) [place] % (Auto) Eos % (Auto) Baso % (Auto) Nucleat RBC Rel Count Absolute Neuts (auto) Absolute Lymphs (auto) Absolute Monos (auto) Absolute Eos (auto) Absolute Basos (auto) Absolute Nucleated RBC Immature Gran % Seg Neutrophils % Lymphocytes % Eosinophils % Immature Gran # Absolute Seg Neuts Absolute Lymphocytes Absolute Eosinophils RBC/WBC/PLT Morphology Platelet Estimate Smear Review By PT 13.4 SEC SEC (12.0-15.0) INR 1.03 (0.83-1.16) APTT 22.9 SEC L SEC (23.0-38.0) VBG Lactic Acid Sodium 136 mEq/L mEq/L (134-144) Potassium 4.2 mEq/L mEq/L (3.5-5.2) Chloride 102 mEq/L mEq/L (97-110) Carbon Dioxide 22 mEq/l mEq/l (22-31) Anion Gap 12 mEq/L mEq/L (8-16) BUN 22 mg/dL mg/dL (7-23) Creatinine 0.8 mg/dL mg/dL (0.7-1.3) Estimated GFR > 60 Glucose 134 mg/dL H mg/dL (70-100) Calcium 9.0 mg/dL mg/dL (8.5-10.4) Total Bilirubin 2.3 mg/dL H mg/dL (0.1-1.4) Conjugated Bilirubin 0.7 mg/dL H mg/dL (0.0-0.5) Unconjugated Bilirubin 1.6 mg/dL H mg/dL (0.0-1.1) Urine Color [place]LE Urine Appearance HAZY Urine pH 6.0 (5.0-7.5) Ur Specific [place] 1.020 (1.002-1.030) Urine Protein NEGATIVE (NEGATIVE) Urine Ketones NEGATIVE (NEGATIVE) Urine Blood NEGATIVE (NEGATIVE) Urine Nitrate NEGATIVE (NEGATIVE) Urine Bilirubin NEGATIVE (NEGATIVE) Urine Urobilinogen 2.0 EU H EU (0.2-1.0) Ur Leukocyte Esterase NEGATIVE (NEGATIVE) Urine Glucose NEGATIVE (NEGATIVE) 07/10/16 07/10/16 23:47 23:47 WBC 0.07 10^3/uL L* 10^3/uL (3.80-9.50) RBC 2.50 10^6/uL L 10^6/uL (4.40-6.38) Hgb 8.4 g/dL L g/dL (13.7-17.5) Hct 22.8 % L % (40.0-51.0) MCV 91.2 fL fL (81.5-99.8) MCH 33.6 pg pg (27.9-34.1) MCHC 36.8 g/dL H g/dL (32.4-36.7) RDW 12.0 % % (11.5-15.2) Plt Count 30 10^3/uL L 10^3/uL (150-400) MPV 9.8 fL fL (8.7-11.7) Neut % (Auto) Not Reported Lymph % (Auto) Not Reported [place] % (Auto) Not Reported Eos % (Auto) Not Reported Baso % (Auto) Not Reported Nucleat RBC Rel Count 0.0 % % (0.0-0.2) Absolute Neuts (auto) Not Reported Absolute Lymphs (auto) Not Reported Absolute Monos (auto) Not Reported Absolute Eos (auto) Not Reported Absolute Basos (auto) Not Reported Absolute Nucleated RBC 0.00 10^3/uL 10^3/uL (0-0.01) Immature Gran % Not Reported Seg Neutrophils % 3 % % Lymphocytes % 95 % % Eosinophils % 2 % % Immature Gran # Not Reported Absolute Seg Neuts 0.00 10^/uL L 10^/uL (1.70-6.50) Absolute Lymphocytes 0.07 10^3/uL L 10^3/uL (1.00-3.00) Absolute Eosinophils 0.00 10^3/uL L 10^3/uL (0.03-0.40) RBC/WBC/PLT Morphology NORMAL (NORMAL) Platelet Estimate DECREASED L (ADEQ) Smear Review By Pending PT INR APTT VBG Lactic Acid 2.9 mmol/L H mmol/L (0.7-2.1) Sodium Potassium Chloride Carbon Dioxide Anion Gap BUN Creatinine Estimated GFR Glucose Calcium Total Bilirubin Conjugated Bilirubin Unconjugated Bilirubin Urine Color Urine Appearance Urine pH Ur Specific [place] Urine Protein Urine Ketones Urine Blood Urine Nitrate Urine Bilirubin Urine Urobilinogen Ur Leukocyte Esterase Urine Glucose Medications Given: Discontinued Medications Acetaminophen (Tylenol) 1,000 mg PO EDNOW ONE Stop: 07/11/16 00:22 Last Admin: 07/11/16 00:20 Dose: 1,000 mg Sodium Chloride (Ns) 1,000 mls @ 0 mls/hr IV ONCE ONE PRN Reason: Wide Open Stop: 07/10/16 23:29 Last Admin: 07/10/16 23:52 Dose: 1,000 mls Sodium Chloride (Ns) 1,000 mls @ 0 mls/hr IV ONCE ONE PRN Reason: Wide Open Stop: 07/10/16 23:29 Last Admin: 07/10/16 23:52 Dose: 1,000 mls Cefepime HCl 2 gm/ Dextrose 100 mls @ 200 mls/hr IV EDNOW ONE PRN Reason: Protocol Stop: 07/11/16 00:48 Last Admin: 07/11/16 00:56 Dose: 100 mls Vancomycin/Sodium Chloride (Vancomycin 1 Gm (Premix)) 250 mls @ 250 mls/hr IV EDNOW ONE PRN Reason: Protocol Stop: 07/11/16 01:39 Last Admin: 07/11/16 01:30 Dose: 250 mls Sodium Chloride (Ns) 1,000 mls @ 3,000 mls/hr IV ONCE ONE Stop: 07/11/16 01:13 Last Admin: 07/11/16 00:56 Dose: 1,000 mls Meperidine HCl (Demerol 25 Mg/Ml Syringe) 25 mg IVP ONCE ONE Stop: 07/11/16 02:31 Last Admin: 07/11/16 02:26 Dose: 25 mg Departure - Departure Disposition: [facility] Acute Clinical Impression: Neutropenic fever, History of lymphoma, Sepsis Condition: Fair
[2016-07-11 00:07] LABS: ADD DIFF? YES; ADD MORPH? NO; ATYPICAL LYMPHOCYTE FLAG 20 (0-99); FRAGMENT RBC FLAG 0 (0-99); HEMATOCRIT 22.8 % (40.0-51.0); HEMOGLOBIN 8.4 g/dL (13.7-17.5); LIPEMIA HEMOLYSIS FLAG 90 (0-99); MEAN CELL HEMOGLOBIN 33.6 pg (27.9-34.1); MEAN CELL HEMOGLOBIN CONCENTR. 36.8 g/dL (32.4-36.7); MEAN CELL VOLUME 91.2 fL (81.5-99.8); MEAN PLATELET VOLUME 9.8 fL (8.7-11.7); PLATELET CLUMPS FLAG 0 (0-99)
[2016-07-11 00:08] LABS: PLATELET COUNT 30 10^3/uL (150-400)
[2016-07-11 00:09] LABS: INR 1.03 (0.83-1.16); PROTIME(PATIENT) 13.4 SEC (12.0-15.0)
[2016-07-11 00:10] LABS: ADD SCAN? NO; APTT 22.9 SEC (23.0-38.0)
[2016-07-11] MEDS ORDERED: ACETAMINOPHEN 500 MG TAB ONE (00:14)
[2016-07-11] MEDS ORDERED: CEFEPIME HCL 2 GM in D5W 100 ML IV ONE (00:19)
[2016-07-11] MEDS ORDERED: ACETAMINOPHEN 325 MG TAB PO ONE ×2 (00:21→07:57)
[2016-07-11 00:26] LABS: ANION GAP 12 mEq/L (8-16); CARBON DIOXIDE 22 mEq/l (22-31); CHLORIDE 102 mEq/L (97-110); CREATININE 0.8 mg/dL (0.7-1.3); GLOMERULAR FILTRATION RATE > 60; GLUCOSE 134 mg/dL (70-100); POTASSIUM 4.2 mEq/L (3.5-5.2); SODIUM 136 mEq/L (134-144)
[2016-07-11 00:37] LABS: BILIRUBIN,TOTAL 2.3 mg/dL (0.1-1.4)
[2016-07-11] MEDS ORDERED: VANCOMYCIN HCL/NORMAL SALINE 250 ML IV ONE (00:40)
[2016-07-11 00:42] LABS: BILIRUBIN-CONJUGATED 0.7 mg/dL (0.0-0.5); BILIRUBIN-UNCONJUGATED 1.6 mg/dL (0.0-1.1)
[2016-07-11 00:49] LABS: COLOR AMBER; LEUKOCYTE ESTERASE,URINE NEGATIVE (NEGATIVE); NITRITE,URINE NEGATIVE (NEGATIVE)
[2016-07-11] MEDS ORDERED: NS 1,000 ML IV ONE (00:54)
--- NOTE | 2016-07-11 01:04 | PDGENHP ---
History and Physical - Chief Complaint fever - History of Present Illness 65 y/o male with history of lymphoplasmacytic lymphoma with tucker transformation and recent hospitalization for left lower extremity DVT requiring tPA and stents complicated by a retroperitoneal bleed and ultimately discharged from [facility] on 06/30/2016 after a 5 day stay who presents to the hospital today with fever. Prior to the patient's last hospital stay had been treating his illness with CBD oil. He was initiated on chemotherapy during the last hospital stay. Patient states he has been weak and tired since his discharge. He reports a regular diet. Today he took his temperature and noted to be 102. He has had a few bouts of intermittent diarrhea both while being in the hospital in since his discharge. He denies any cough or shortness of breath. he does report some pain with urination. He denies any rashes. He does have some discomfort on the left side of his tongue. History Information - Allergies/Home Medication List Allergies/Adverse Reactions: hydrocodone bitartrate [From Vicodin] Allergy (Intermediate, Verified 07/10/16 22:54) Rash ibrutinib [From Imbruvica] Allergy (Mild, Verified 07/10/16 22:54) Rash Home Medications: Ascorbic Acid [Vitamin C 500 mg (*)] 500 mg PO DAILY 06/30/16 [Last Taken ] Cyanocobalamin [Vitamin B12 (*)] 1,000 mcg PO DAILY 06/30/16 [Last Taken ] Gabapentin [Neurontin] 600 mg PO QID 06/30/16 [Last Taken 06/30/16] Herbals/Supplements -Info Only 1 ea PO DAILY 06/30/16 [Last Taken 06/30/16] Vitamin B Complex [B Complex] 1 each PO DAILY 06/30/16 [Last Taken 06/30/16] I have personally reviewed and updated: family history, medical history, social history, surgical history - Past Medical History Additional medical history: Lymphoma, waldenstrom's macroglobulinemia, Vit B12 deficiency, recent hospitalization dc 06/30/16 with large left lower extremity dvt s/p stent and tpa complicated by retroperitoneal bleed - Surgical History Reports: no pertinent surgical hx - Family History Additional family history: father of [place] - Social History Smoking Status: Former smoker Review of Systems ROS: 10pt was reviewed & negative except for what was stated in HPI & below Physical Exam Temp Pulse Resp BP Pulse Ox 38 C 98 14 119/55 L 93 07/11/16 01:03 07/11/16 01:03 07/11/16 01:03 07/11/16 01:03 07/11/16 01:03 O2 (L/minute) 2 Constitutional: no apparent distress, appears nourished, not in pain Eyes: PERRL, anicteric sclera, EOMI Ears, Nose, Mouth, Throat: moist mucous membranes, hearing normal, ears appear normal, no oral mucosal ulcers, other ( tongue appears normal) Cardiovascular: regular rate and rhythym, no murmur, rub, or gallop, systolic murmur, No edema Respiratory: no respiratory distress, no rales or rhonchi, clear to auscultation Gastrointestinal: normoactive bowel sounds, soft, non-tender abdomen, no palpable masses, No guarding, No rebound Genitourinary: no bladder fullness, no bladder tenderness Skin: warm, normal color, no rashes or abrasions, no fluctuance, no induration, No mottled Musculoskeletal: full muscle strength, no muscle tenderness, normal joint ROM, no joint effusions Neurologic: AAOx3, CN II-XII Intact, No facial droop Psychiatric: interacting appropriately, not anxious, not encephalopathic, thought process linear Lymph, Heme, Immunologic: no cervical LAD, no supraclavicular LAD Lab Data & Imaging Review 07/10/16 23:47 07/10/16 23:47 WBC 0.07 10^3/uL (3.80-9.50) L* 07/10/16 23:47 RBC 2.50 10^6/uL (4.40-6.38) L 07/10/16 23:47 Hgb 8.4 g/dL (13.7-17.5) L 07/10/16 23:47 Hct 22.8 % (40.0-51.0) L 07/10/16 23:47 MCV 91.2 fL (81.5-99.8) 07/10/16 23:47 MCH 33.6 pg (27.9-34.1) 07/10/16 23:47 MCHC 36.8 g/dL (32.4-36.7) H 07/10/16 23:47 RDW 12.0 % (11.5-15.2) 07/10/16 23:47 Plt Count 30 10^3/uL (150-400) L 07/10/16 23:47 MPV 9.8 fL (8.7-11.7) 07/10/16 23:47 Neut % (Auto) Not Reported 07/10/16 23:47 Lymph % (Auto) Not Reported 07/10/16 23:47 [place] % (Auto) Not Reported 07/10/16 23:47 Eos % (Auto) Not Reported 07/10/16 23:47 Baso % (Auto) Not Reported 07/10/16 23:47 Nucleat RBC Rel Count 0.0 % (0.0-0.2) 07/10/16 23:47 Absolute Neuts (auto) Not Reported 07/10/16 23:47 Absolute Lymphs (auto) Not Reported 07/10/16 23:47 Absolute Monos (auto) Not Reported 07/10/16 23:47 Absolute Eos (auto) Not Reported 07/10/16 23:47 Absolute Basos (auto) Not Reported 07/10/16 23:47 Absolute Nucleated RBC 0.00 10^3/uL (0-0.01) 07/10/16 23:47 Immature Gran % Not Reported 07/10/16 23:47 Immature Gran # Not Reported 07/10/16 23:47 PT 13.4 SEC (12.0-15.0) 07/10/16 23:47 INR 1.03 (0.83-1.16) 07/10/16 23:47 APTT 22.9 SEC (23.0-38.0) L 07/10/16 23:47 VBG Lactic Acid 0.7 mmol/L (0.7-2.1) D 07/11/16 00:55 Sodium 136 mEq/L (134-144) 07/10/16 23:47 Potassium 4.2 mEq/L (3.5-5.2) 07/10/16 23:47 Chloride 102 mEq/L (97-110) 07/10/16 23:47 Carbon Dioxide 22 mEq/l (22-31) 07/10/16 23:47 Anion Gap 12 mEq/L (8-16) 07/10/16 23:47 BUN 22 mg/dL (7-23) 07/10/16 23:47 Creatinine 0.8 mg/dL (0.7-1.3) 07/10/16 23:47 Estimated GFR > 60 07/10/16 23:47 Glucose 134 mg/dL (70-100) H 07/10/16 23:47 Calcium 9.0 mg/dL (8.5-10.4) 07/10/16 23:47 Total Bilirubin 2.3 mg/dL (0.1-1.4) H 07/10/16 23:47 Conjugated Bilirubin 0.7 mg/dL (0.0-0.5) H 07/10/16 23:47 Unconjugated Bilirubin 1.6 mg/dL (0.0-1.1) H 07/10/16 23:47 Urine Color MIRE[place]LE 07/11/16 00:15 Urine Appearance HAZY 07/11/16 00:15 Urine pH 6.0 (5.0-7.5) 07/11/16 00:15 Ur Specific [place] 1.020 (1.002-1.030) 07/11/16 00:15 Urine Protein NEGATIVE (NEGATIVE) 07/11/16 00:15 Urine Ketones NEGATIVE (NEGATIVE) 07/11/16 00:15 Urine Blood NEGATIVE (NEGATIVE) 07/11/16 00:15 Urine Nitrate NEGATIVE (NEGATIVE) 07/11/16 00:15 Urine Bilirubin NEGATIVE (NEGATIVE) 07/11/16 00:15 Urine Urobilinogen 2.0 EU (0.2-1.0) H 07/11/16 00:15 Ur Leukocyte Esterase NEGATIVE (NEGATIVE) 07/11/16 00:15 Urine Glucose NEGATIVE (NEGATIVE) 07/11/16 00:15 Visualized and Interpreted Chest x-ray results: Yes Chest X-Ray results: no infiltrate, normal, other ( medication port in place) Assessment & Plan Assessment: 65 y/o male with history of lymphoplasmacytic lymphoma with tucker transformation recently hospitalized from through 03/04/2017 for treatment of a large left lower extremity DVT who was initiated on chemotherapy at that time presenting with: # neutropenic fever # hyperbilirubinemia # presumed sepsis with unclear source of infection at this time # anemia # severe thrombocytopenia # intermittent diarrhea # tongue pain with normal exam # new systolic heart murmur plan: -I discussed case with the emergency department physician who spoke with Dr. Vogel who is on-call for oncology recommended cefepime and vancomycin which were given in the emergency department and will be continued - monitor for signs symptoms of severe sepsis - send LFTs in the morning - monitor H&H and platelets - consider sending stool for C diff if diarrhea occurs - echocardiogram patient requests to be DNR status and would not want to be resuscitated patient is high risk for VTE however anticoagulation is contraindicated with his severe thrombocytopenia
[2016-07-11 01:21] LABS: PLATELET ESTIMATE DECREASED (ADEQ)
[2016-07-11] MEDS ORDERED: ONDANSETRON 4 MG/2 ML VIAL IVP PRN (01:35)
[2016-07-11] MEDS ORDERED: PROMETHAZINE HCL 25 MG/ML INJ IVP PRN (01:35)
[2016-07-11] MEDS ORDERED: MEPERIDINE 25 MG/ML SYR IVP ONE ×2 (02:30→13:44)
[2016-07-11] MEDS: D5W 1/2 NS W/ 20 KCl/L 1,000 ML IV SCH ×2 (03:04→17:58)
[2016-07-11] MEDS: CEFEPIME HCL 2 GM in D5W 100 ML IV SCH ×3 (05:01→21:13)
[2016-07-11 06:21] LABS: ATYPICAL LYMPHOCYTE FLAG 0 (0-99); FRAGMENT RBC FLAG 0 (0-99); LIPEMIA HEMOLYSIS FLAG 90 (0-99); MEAN CELL HEMOGLOBIN 33.7 pg (27.9-34.1); MEAN CELL HEMOGLOBIN CONCENTR. 35.9 g/dL (32.4-36.7); MEAN PLATELET VOLUME 9.9 fL (8.7-11.7); PLATELET CLUMPS FLAG 0 (0-99); RED BLOOD CELL COUNT 1.66 10^6/uL (4.40-6.38)
[2016-07-11 06:27] LABS: HEMATOCRIT 15.6 % (40.0-51.0); HEMOGLOBIN 5.6 g/dL (13.7-17.5)
[2016-07-11 06:28] LABS: ADD MORPH? NO; ADD SCAN? NO; PLATELET COUNT 14 10^3/uL (150-400)
[2016-07-11 06:30] LABS: ADD DIFF? NO
[2016-07-11 06:50] LABS: ALANINE AMINOTRANSFERASE 70 IU/L (21-72); ALBUMIN 2.3 g/dL (3.5-5.0); ALKALINE PHOSPHATASE 93 IU/L (38-126); ASPARTATE AMINOTRANSFERASE 37 IU/L (17-59); BILIRUBIN,TOTAL 1.6 mg/dL (0.1-1.4); CALCIUM 7.6 mg/dL (8.5-10.4); CARBON DIOXIDE 20 mEq/l (22-31); CHLORIDE 110 mEq/L (97-110); CREATININE 0.7 mg/dL (0.7-1.3); GLOMERULAR FILTRATION RATE > 60; GLUCOSE 132 mg/dL (70-100); SODIUM 136 mEq/L (134-144); TOTAL PROTEIN 4.3 g/dL (6.3-8.2)
[2016-07-11 07:32] LABS: PLATELET ESTIMATE DECREASED (ADEQ)
[2016-07-11 07:43] LABS: ANION GAP 3 mEq/L (8-16); POTASSIUM 3.6 mEq/L (3.5-5.2)
[2016-07-11] MEDS: ACETAMINOPHEN 325 MG TAB PO PRN ×2 (07:45→15:55)
--- NOTE | 2016-07-11 07:47 | HOSPPROG ---
Hospitalist Progress Note Assessment/Plan: 65 y/o male with neutropenic fever with worsening anemia in the setting of previous retroperitoneal bleeding and thrombocytopenia -stat type and screen and transfuse -transfuse platelets if bleeding -consider abdominal imaging if repeat h/h is low to eval for bleeding I recommended that the patient be transferred to the ICU given the severity of his illness, but patient would like to stay on 1N DNR status Subjective: feels better today. no abd pain. no obvious bleeding Objective: Vital Signs Temp Pulse Resp BP Pulse Ox 37.2 C 96 16 90/46 L 96 07/11/16 07:37 07/11/16 07:37 07/11/16 07:37 07/11/16 07:41 07/11/16 07:37 Laboratory Results 07/11/16 06:00 07/11/16 06:00 07/10/16 07/11/16 07/12/16 05:59 05:59 05:59 Intake Total 3821 Output Total 500 Balance 3321 PT 13.4 SEC (12.0-15.0) 07/10/16 23:47 INR 1.03 (0.83-1.16) 07/10/16 23:47 - Physical Exam Constitutional: not in pain Cardiovascular: regular rate and rhythym, no murmur, rub, or gallop Respiratory: no respiratory distress, no rales or rhonchi, clear to auscultation ICD10 Worksheet Patient Problems: Problems Problem Status Onset History of lymphoma Chronic 12/18/14 Leg weakness, bilateral Chronic Leg swelling Acute Cellulitis Acute Neutropenic fever Acute 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
[2016-07-11 07:56] LABS: HEMATOCRIT 15.5 % (40.0-51.0); HEMOGLOBIN 5.7 g/dL (13.7-17.5)
--- NOTE | 2016-07-11 09:22 | GCON ---
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 RECOMMENDATIONS: 1. Would transfuse packed red blood cells to keep his hemoglobin at 7 or greater, and his platelet count at approximately 50,000 for now until his GI bleeding improves. 2. Agree with broad-spectrum antibiotic coverage. 3. Recommend GI consultation and Infectious Disease consultation. 4. Further treatment will depend on how the patient does over the next 24-48 hours. 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 He is currently a nad ir from his most recent chemotherapy. 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 He is now admitted with neutropenic fever, and probable gastrointestinal bleed. The patient tells m charlie that he developed fever last evening at approximately 6 o'clock in the evening. He was feeling wo rse at about 10:30, and came to the hospital. In addition, he tells me that he has had black stools for the past 3 bowel movements yesterday. He has had no bright red blood per rectum. He denies an y nausea or vomiting. On presentation in the emergency room, he was found to have a white count, which showed neutrophils of less than 100. He also had a fever and was admitted for further workup and treatment. This morn ing, his hemoglobin was found to have gone from 8 to 5. In addition to the patient's neutropenic fever, which we are treating with broad-spectrum antibiotic s, it sounds clinically as though he has had a gastrointestinal bleed. He does have a history of re troperitoneal bleed at his last hospitalization. I think this is likely a GI bleed though because o f his history and the fact that he is not having new flank pain and does not appear to have bruising in either flank. I think the treatment at this time will be supported with transfusion of blood pr oducts and continuing his antibiotic therapy. I think we should have Gastroenterology come by to se e the patient since after he is stabilized, he may benefit from an endoscopic evaluation to try to f ind a bleeding source. If he fails to respond adequately to transfusion support, we will also need to entertain the possibility of repeat retroperitoneal bleed although clinically I think this is les s likely. The patient does not wish to go to the intensive care unit and is do not resuscitate; how ever, we will re-evaluate this on an ongoing basis. HISTORY OF PRESENT ILLNESS: Please see assessment. PAST MEDICAL HISTORY: Remarkable for the above-mentioned lymphoma. He has been treated in the past with bendamustine and Rituxan, and then R-EPOCH. He did not tolerate this very well. He also had significant Rituxan reaction. FAMILY HISTORY: Remarkable for his mother dying at age 99. His father at age 75 from heart di sease. He has a brother with prostate cancer. 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 REVIEW OF SYSTEMS: Currently is remarkable for chills, fever, black stools, or abdominal discomfort , and left leg pain. A 10-system review is otherwise unremarkable. PHYSICAL EXAMINATION: GENERAL: Pale but alert and conversant white male. NECK: No adenopathy. L UNGS: Clear to auscultation. CARDIAC: Regular rate and rhythm. ABDOMEN: Slightly distended abdo men. He does have bowel sounds. He has right and left lower quadrant tenderness to palpation witho ut rebound tenderness. EXTREMITIES: His left calf is also tender, but his left leg is not swollen. LABORATORY EXAM: This morning shows a white count of less than 0.04. His hemoglobin was 5.7 with a hematocrit of 15.5, his platelet count was 14,000. His chemistries show a creatinine of 0.7. Tota l bilirubin is 1.6. His albumin is low at 2.3. His sodium is normal at 136. We will continue to follow along with you during this hospitalization and beyond. Copy requested to: [facility] /[id number]/MODL
--- NOTE | 2016-07-11 09:47 | HOSPPROG ---
Hospitalist Progress Note Assessment/Plan: 1. transfuse packed red cells 2. transfuse platelets 3. continue abx 4. lactate cleared 5. 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
[2016-07-11] MEDS: GABAPENTIN 300 MG CAP PO SCH ×3 (11:05→21:13)
--- NOTE | 2016-07-11 11:32 | ECHO ---
[id number] + + [address] : : [place] [address] : : [phone] + + Adult Echocardiographic Report + -----+ :Name: Benson WALTERabdulazizjosue Date: 07/11/2016 09:20 AM : : Hospital Admission Number: [id number] Location : 153: :: 1950 Gender: Male Height: 66 in : :Age: 65 yrs Race: WH Weight: 150 lb : :Reason For Study: Murmur with febrile neutropenia : : BSA: 1.8 meters2 : + -----+ MMode/2D Measurements \T\ Calculations IVSd: 0.86 cm LVIDd: 5.0 cm FS: 34.3 % Ao root diam: LVPWd: 0.90 cm LVIDs: 3.3 cm EDV(Teich): 3.0 cm 116.1 ml LA dimension: ESV(Teich): 42.8 ml 4.2 cm EF(Teich): 63.1 % LVOT diam: 2.1 cmLVLd ap4: 8.9 cm SV(MOD-sp4): LVOT area: EDV(MOD-sp4): 58.0 ml 3.5 cm2 81.0 ml LVLs ap4: 7.4 cm ESV(MOD-sp4): 23.0 ml EF(MOD-sp4): 71.6 % Normal Measurement Values: + + :LVIDd (3.5-5.7cm) IVSd (0.6-1.1cm) LVPWd (0.6-1.1cm) Aortic Root (2.0-3.7cm)Left Atrium (1.5-4.0cm): :LV Vol(d) (76-115ml) LV Vol(s) (29-48ml) Ejec Fraction (50-65%)PV Toño (0.6- 1.2m/s) TV Toño (0.4-1.0m/s) : :MV E Toño (0.8-1.0m/s)MV A Toño (0.3-1.0m/s)LVOT Toño (0.7-1.2m/s) Asc Ao Toño ( 0.9-1.8m/s) : + + Doppler Measurements \T\ Calculations MV E max toño: Ao V2 max: LV V1 max: SV(LVOT): 102.0 cm/sec 202.0 cm/sec 101.0 cm/sec 70.7 ml MV A max toño: Ao max P.3 mmHgLV V1 max P.7 cm/sec Ao mean P.1 mmHg MV E/A: 1.7 10.0 mmHg LV V1 mean PG: Ao V2 mean: 2.0 mmHg 147.0 cm/sec LV V1 mean: Ao V2 VTI: 39.8 cm 73.8 cm/sec KIMBERLY(I,D): 1.8 cm2 LV V1 VTI: 20.4 cm KIMBERLY(V,D): 1.7 cm2 TR max toño: 244.0 cm/sec TR max P.8 mmHg RAP systole: 5.0 mmHg RVSP(TR): 28.8 mmHg Left Ventricle The left ventricle is normal in size. There is normal left ventricular wall thickness. Left ventricular systolic function is normal. Ejection Fraction = 65-70%. No regional wall motion abnormalities noted. Right Ventricle The right ventricle is normal in size and function. Atria The left atrial size is normal. Right atrial size is normal. The interatrial septum is intact with no evidence for an atrial septal defect. Mitral Valve The mitral valve is normal in structure and function. There is no evidence of mitral valve prolapse. There is no mitral valve stenosis. Tricuspid Valve Normal tricuspid valve. There is trace tricuspid regurgitation. Right ventricular systolic pressure is normal. Aortic Valve AV moderate calcification. There is no aortic stenosis. There is no aortic insufficiency. Pulmonic Valve The pulmonic valve is normal in structure and function. Trace pulmonic valvular regurgitation. Great Vessels The aortic root is normal size. Pericardium/Pleural trivial pericardial effusion. Conclusion A complete two-dimensional transthoracic echocardiogram was performed (2D, M-mode, Doppler and color flow Doppler). Left ventricular systolic function is normal. Ejection Fraction = 65-70%. There is trace tricuspid regurgitation. Right ventricular systolic pressure is normal. AV moderate calcification. Trace pulmonic valvular regurgitation. trivial pericardial effusion. Final Reading Physician: Giovanny Pierce signed on 07/11/2016 11:31 AM Ordering Physician: John Joyce Performed By: Ileana Mcconnell RDCS
[2016-07-11] MEDS: PANTOPRAZOLE SODIUM 40 MG in NS 100 ML IV SCH ×2 (11:38→21:13)
[2016-07-11] MEDS ORDERED: NON-FORMULARY NEW DRUG (Gabapentin [Neurontin] 600 MG) PO SCH (12:00)
--- NOTE | 2016-07-11 13:23 | GCON ---
[f rep st] CONSULTATION INFECTIOUS DISEASE CONSULTATION. DATE OF CONSULTATION: 07/11/2016 REFERRING PHYSICIAN: Alex Glaser MD REASON FOR CONSULTATION: Gram-negative serge bacteremia sepsis, febrile neutropenia. CHIEF COMPLAINT: Fevers and chills. HISTORY OF PRESENT ILLNESS: This is a 65-year-old male with a past medical history significant for lymphoplasmacytic lymphoma with Villanueva transformation, recent diagnosis of left lower extremity DVT requiring tPA and stents complicated by a retroperitoneal bleed. He was recently discharged from this hospital on 06/30/2016. He states that since that time, he has felt more weak than he normally has. He has been having shortness of breath with exertion. He was having some right-sided flank and back pain, especially acutely 2-3 days ago, which has somewhat improved. He has not been monitoring his stools but states that yesterday, he noted that his stools are black in nature. He has always noted some blood from the anus when he wipes recently as well. He states initially after he got discharged home, he was having some diarrheal or loose stools but since then, he has noted to being more formed in nature. He denies any aron abdominal pain as such. He denies any burning with urination. He has had some pain involving the side of his tongue recently. He denies any sore throat or difficulty swallowing. When he got admitted, his temperature max was 39.3, his heart rate was 113, his respiratory rate was 20. His white blood cell count was 0.07. Blood cultures x2 sets were drawn and both bottles out of 1 set are growing out a gram-negative serge, preliminarily identified as Klebsiella pneumoniae. Sensitivities are pending. He was placed empirically on vancomycin and cefepime, and Infectious Disease is now consulted for further evaluation and opinion. REVIEW OF SYSTEMS: Had fevers and shaking chills the last day or 2. Mild headache, improved with sitting up and with some Tylenol. Mild change in vision , such with reading a book. HEENT: Complaining of some left-sided tongue pain , especially at the very back of his tongue. Denies any sore throat, difficulty swallowing. No ear pain or drainage. CARDIOVASCULAR: Denies any chest pain or rapid heart beat. RESPIRATORY: Has some shortness of breath with exertion. Denies any cough or sputum production. Also denies any nasal drainage or sinus pressure. ABDOMEN: Denies any aron abdominal pain. Had some mild nausea. No vomiting. No recent diarrhea. BACK: Some bilateral flank pain the last couple days, is improved today. EXTREMITIES: Denies any lower extremity pain or swelling. MUSCULOSKELETAL: Denies any joint pains or muscle aches now. SKIN: Denies any rashes or open wounds recently. Rest of 10 -point review of systems essentially negative as above. PAST MEDICAL HISTORY: Significant for lymphoma with Villanueva transformation, Waldenstrom macroglobulinemia, vitamin D deficiency, left lower extremity DVT status post tPA and stent, retroperitoneal bleed. PAST SURGICAL HISTORY: None. ALLERGIES: Hydrocodone and ibrutinib. FAMILY HISTORY: Significant for myocardial infarction. SOCIAL HISTORY: He is a former smoker. Denies alcohol. MEDICATIONS: As per MAR. PHYSICAL EXAMINATION: VITAL SIGNS: Temperature current 36.7, T-max 39.3. Heart rate is 87, blood pressure 182/40, respiratory rate 16, saturation 97% on 2 L O2 via nasal cannula. GENERAL: Patient is resting in bed in no acute respiratory distress. Awake, alert, oriented x3. HEENT: Head is normocephalic , atraumatic. Eyes: No conjunctival injection. No petechiae noted. Oropharynx: No posterior pharyngeal erythema or thrush noted. No obvious tongue ulcers appreciated. CARDIOVASCULAR: S1, S2. Regular rate and rhythm. He has a soft 2/6 systolic murmur appreciated. RESPIRATORY: Clear to auscultate bilaterally. No rhonchi or rales appreciated. ABDOMEN: Positive bowel sounds in all quadrants. Soft, nontender, nondistended. EXTREMITIES: No lower extremity edema. MUSCULOSKELETAL: No obvious joint effusions appreciated. SKIN: No obvious rashes noted. LABS: White blood cell count is less than 0.04, hemoglobin 5.6, hematocrit 15.6 , platelets are 14, neutrophils present at 33%. ANC is 10. INR 1.0. His lactic acid was 2.9, is down to 0.7. Sodium 136, potassium 3.6, chloride 110, bicarb 20, BUN is 18, creatinine 0.7. AST 37, ALT 70, alkaline phosphatase 93, total bilirubin 1.6. Urinalysis is unremarkable. Negative nitrites, negative leukocytes esterases. Influenza A and B DFA is negative. Blood cultures as stated above. IMAGING RESULTS: Chest x-ray images reviewed. Left basal atelectasis. No obvious pneumonia. ASSESSMENT: 1. Klebsiella sepsis bacteremia. 2. Febrile neutropenia. PLAN: Source of gram-negative serge bacteremia is likely GI related, either related to possible GI bleed versus typhlitis versus other. Patient is currently on broad-spectrum antimicrobials with cefepime with improvement in his hemodynamic parameters for the most part. He is receiving blood at present. Will repeat blood cultures in the a.m. to further evaluate. Would recommend CT of the abdomen and pelvis to further evaluate as well. No obvious mucositis or tongue ulcer noted at this time. Would discontinue vancomycin, and will observe closely. Apparently, GI has been consulted as well, so will follow along. Thank you very much for providing this opportunity to care for your patient in consultation. /[id number]/MODL MTDD
[2016-07-11] MEDS ORDERED: VANCOMYCIN HCL/NORMAL SALINE 250 ML IV SCH (13:30)
[2016-07-11] MEDS: [UNRECOGNIZED DRUG - MIXTURE] PO SCH ×3 (13:30→21:14)
[2016-07-11 16:49] LABS: ADD MORPH? NO; ATYPICAL LYMPHOCYTE FLAG 0 (0-99); FRAGMENT RBC FLAG 0 (0-99); HEMATOCRIT 21.6 % (40.0-51.0); HEMOGLOBIN 8.1 g/dL (13.7-17.5); MEAN CELL HEMOGLOBIN 32.5 pg (27.9-34.1); MEAN CELL HEMOGLOBIN CONCENTR. 37.5 g/dL (32.4-36.7); MEAN CELL VOLUME 86.7 fL (81.5-99.8); MEAN PLATELET VOLUME 9.5 fL (8.7-11.7); PLATELET CLUMPS FLAG 10 (0-99); RED BLOOD CELL COUNT 2.49 10^6/uL (4.40-6.38); RED CELL DISTRIBUTION WIDTH 14.6 % (11.5-15.2)
[2016-07-11 16:53] LABS: LIPEMIA HEMOLYSIS FLAG 100 (0-99); PLATELET COUNT 33 10^3/uL (150-400)
[2016-07-11 16:55] LABS: ADD SCAN? NO
[2016-07-11 17:17] LABS: ADD DIFF? YES
[2016-07-12] MEDS: ACETAMINOPHEN 325 MG TAB PO PRN ×2 (04:51→12:41)
[2016-07-12] MEDS: D5W 1/2 NS W/ 20 KCl/L 1,000 ML IV SCH ×2 (04:52→22:18)
[2016-07-12] MEDS: GABAPENTIN 300 MG CAP PO SCH ×4 (06:23→22:18)
[2016-07-12] MEDS: CEFEPIME HCL 2 GM in D5W 100 ML IV SCH ×3 (06:23→22:17)
[2016-07-12 06:55] LABS: ADD MORPH? NO; ATYPICAL LYMPHOCYTE FLAG 0 (0-99); FRAGMENT RBC FLAG 0 (0-99); HEMATOCRIT 20.8 % (40.0-51.0); HEMOGLOBIN 7.6 g/dL (13.7-17.5); LIPEMIA HEMOLYSIS FLAG 90 (0-99); MEAN CELL HEMOGLOBIN 32.2 pg (27.9-34.1); MEAN CELL HEMOGLOBIN CONCENTR. 36.5 g/dL (32.4-36.7); MEAN CELL VOLUME 88.1 fL (81.5-99.8); MEAN PLATELET VOLUME 10.2 fL (8.7-11.7); PLATELET CLUMPS FLAG 0 (0-99); RED BLOOD CELL COUNT 2.36 10^6/uL (4.40-6.38); RED CELL DISTRIBUTION WIDTH 14.5 % (11.5-15.2)
[2016-07-12 06:58] LABS: PLATELET COUNT 27 10^3/uL (150-400)
[2016-07-12 06:59] LABS: ADD SCAN? NO
[2016-07-12 07:03] LABS: ADD DIFF? NO
[2016-07-12 07:04] LABS: LEFT SHIFT FLG 0 (0-99)
[2016-07-12 07:28] LABS: PLATELET ESTIMATE DECREASED (ADEQ)
[2016-07-12] MEDS: PANTOPRAZOLE SODIUM 40 MG in NS 100 ML IV SCH ×2 (08:39→22:18)
[2016-07-12] MEDS: CYANO/VITAMIN B12 1000 MCG TAB PO SCH (08:39)
[2016-07-12] MEDS: VITAMIN B COMPLEX 1 EA CAP/TAB PO SCH (08:39)
[2016-07-12] MEDS: [UNRECOGNIZED DRUG - MIXTURE] PO SCH ×3 (08:40→18:24)
[2016-07-12] MEDS ORDERED: Herbals/Supplements -Info Only PO SCH (09:00)
--- NOTE | 2016-07-12 09:17 | HOSPPROG ---
Hospitalist Progress Note Assessment/Plan: 65 yo M w lymphoma here w febrile neutropenia, klebsiella bacteremia and anemia bacteremia: source is GI vs lungs (cxr clear on admit; interp by me) continue cefepime until sensitivities return repeat blood cx today anemia: no signs ongoing blood loss, no further black stool will call GI for EGD in AM on ppi give 2 add'l units today rigors: none further prn demerol thrombocytopenia: 2/2 chemo, lymphoma no need for plateletes today follow proph: pharm VTE proph contraindicated Subjective: brown stool this AM. case d/w dr beavers. feels better this AM but thinks he has " a cold" Objective: Vital Signs Temp Pulse Resp BP Pulse Ox 36.3 C 75 18 122/60 H 96 07/12/16 07:47 07/12/16 07:47 07/12/16 07:47 07/12/16 07:47 07/12/16 07:47 Laboratory Results 07/12/16 06:20 07/11/16 06:00 07/11/16 07/12/16 07/13/16 05:59 05:59 05:59 Intake Total 3821 3667 Output Total 500 3550 420 Balance 3321 117 -420 PT 13.4 SEC (12.0-15.0) 07/10/16 23:47 INR 1.03 (0.83-1.16) 07/10/16 23:47 - Physical Exam Constitutional: no apparent distress, appears nourished Eyes: PERRL, anicteric sclera Ears, Nose, Mouth, Throat: moist mucous membranes, hearing normal Cardiovascular: regular rate and rhythym, no murmur, rub, or gallop Respiratory: other (bibasilar crackles, good air movement, no wheeze) Gastrointestinal: normoactive bowel sounds, soft, non-tender abdomen, No guarding, No rebound Genitourinary: No bolanos in urethra Skin: warm, normal color Musculoskeletal: full muscle strength, no muscle tenderness Neurologic: AAOx3, sensation intact bilaterally ICD10 Worksheet Patient Problems: Problems Problem Status Onset Neutropenic fever Acute Sepsis Acute History of lymphoma Chronic 12/18/14 Cellulitis Acute 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
--- NOTE | 2016-07-12 10:34 | SOAPPROG ---
SOAP Progress Note Assessment/Plan: Assessment: 1. GI Bleed - no fresh bleeding. Stools normal in color per patient. Hgb is down a little to 7.6. Agree with 2 units PRBC. 2. Thrombocytopenia - 27k today. If no fresh bleeding I would hold off on plt txn for now. 3. Klebsiella sepsis - on antibiotics 4. Neutropenia - still profound with WBC 0.06 today 5. Lymphoma - L groin tenderness still present, but not as acute today. Plan: - Transfusion 2 units PRBC - No Plt txn today - Rx kleb sepsis - Endoscopy when medically stable Subjective: Feels dizzy and tired Objective: Vital Signs Temp Pulse Resp BP Pulse Ox 36.3 C 75 18 120/66 96 07/12/16 07:47 07/12/16 07:47 07/12/16 07:47 07/12/16 09:50 07/12/16 07:47 Laboratory Results 07/12/16 06:20 07/11/16 06:00 07/10/16 07/11/16 07/12/16 23:59 23:59 23:59 Intake Total 5891 1597 Output Total 2775 1695 Balance 3116 -98 PT 13.4 SEC (12.0-15.0) 07/10/16 23:47 INR 1.03 (0.83-1.16) 07/10/16 23:47 Microbiology 07/11/16 00:15 Blood Blood Panel (PCR) - Final Klebsiella Pneumoniae 07/11/16 00:15 Blood Blood Culture - Preliminary 07/11/16 00:15 Blood Gram Neg Yoshi [employer] Product Support Specialist 07/11/16 00:00 Blood Blood Culture - Preliminary Gram Neg Yoshi [employer] Product Support Specialist Laboratory Tests 07/11/16 07/12/16 06:00 06:20 WBC 0.06 L* Hgb 7.6 L Plt Count 27 L* Creatinine 0.7 Physical Exam - Physical Exam General Appearance: alert, mild distress Respiratory: lungs clear Cardiac/Chest: regular rate, rhythm Abdomen: soft Skin: pallor Neuro/Psych: alert, normal mood/affect, oriented x 3 ICD10 Worksheet Patient Problems: Problems Problem Status Onset Neutropenic fever Acute Sepsis Acute History of lymphoma Chronic 12/18/14 Cellulitis Acute 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
--- NOTE | 2016-07-12 11:00 | PCMIDPN ---
Assessment/Plan: # Neutropenic fever secondary Klebsiella bacteremia, unclear source. No respiratory or GI symptoms. Could consider port site. Fever curve appears to be improving, no fever since 07/11 at 4:00 p.m. ANC still undetectable --continue high dose cefepime until sensitivities known --repeat blood cultures to establish clearance 1st thing tomorrow morning. Will consider port site more strongly if difficulty clearing blood cultures # Mucositis likely related to neutropenia CXR on admission WNL, personally reviewed by me Medications Cefepime 2 g IV Q 8, # 1 07/12/16 12:38 Subjective: Complains of malaise and dizziness with standing Objective: Vital Signs Temp Pulse Resp BP Pulse Ox 36.3 C 75 18 120/66 96 07/12/16 07:47 07/12/16 07:47 07/12/16 07:47 07/12/16 09:50 07/12/16 07:47 Laboratory Results 07/12/16 06:20 07/11/16 06:00 07/11/16 07/12/16 07/13/16 05:59 05:59 05:59 Intake Total 3821 3667 Output Total 500 3550 1120 Balance 3321 117 -1120 - Physical Exam General Appearance: alert, no apparent distress EENT: pale conjunctiva, other (Ulcer on left side of tongue), No scleral icterus , No thrush Respiratory: lungs clear, No accessory muscle use, No crackles Neck: supple Cardiac/Chest: regular rate, rhythm Extremities: No pedal edema Abdomen: non-tender, soft Skin: No rash Neuro/Psych: alert, normal mood/affect, oriented x 3 - Line/s Mediport Lines: other (Left chest), No drainage, No erythema ICD10 Worksheet Patient Problems: Problems Problem Status Onset Neutropenic fever Acute Sepsis Acute History of lymphoma Chronic 12/18/14 Cellulitis Acute 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
[2016-07-12] MEDS ORDERED: TEMAZEPAM 15 MG CAP PO ONE (22:48)
[2016-07-13] MEDS: CEFEPIME HCL 2 GM in D5W 100 ML IV SCH ×2 (05:43→15:27)
[2016-07-13] MEDS: GABAPENTIN 300 MG CAP PO SCH ×4 (05:43→21:28)
[2016-07-13 06:18] LABS: ADD MORPH? NO; ATYPICAL LYMPHOCYTE FLAG 20 (0-99); FRAGMENT RBC FLAG 0 (0-99); HEMATOCRIT 30.4 % (40.0-51.0); HEMOGLOBIN 11.4 g/dL (13.7-17.5); MEAN CELL HEMOGLOBIN 32.1 pg (27.9-34.1); MEAN CELL HEMOGLOBIN CONCENTR. 37.5 g/dL (32.4-36.7); MEAN CELL VOLUME 85.6 fL (81.5-99.8); MEAN PLATELET VOLUME 9.2 fL (8.7-11.7); PLATELET CLUMPS FLAG 0 (0-99); RED BLOOD CELL COUNT 3.55 10^6/uL (4.40-6.38); RED CELL DISTRIBUTION WIDTH 14.3 % (11.5-15.2)
[2016-07-13 06:19] LABS: LIPEMIA HEMOLYSIS FLAG 100 (0-99)
[2016-07-13 06:20] LABS: ADD SCAN? NO
[2016-07-13 06:22] LABS: PLATELET COUNT 16 10^3/uL (150-400)
[2016-07-13 06:23] LABS: ADD DIFF? NO
[2016-07-13 06:48] LABS: PLATELET ESTIMATE DECREASED (ADEQ)
--- NOTE | 2016-07-13 08:27 | SOAPPROG ---
SOAP Progress Note Assessment/Plan: Assessment: 1. GI Bleed - no fresh bleeding. Stools normal in color per patient. Hgb is up to 11.4 today. No txn PRBC needed today. 2. Thrombocytopenia - 16k today. I'm going to give another platelet transfusion today. 3. Klebsiella sepsis - on antibiotics. Sensitive to everything except ampicillin. Abx management per ID. 4. Neutropenia - still profound with WBC 0.08 today 5. Lymphoma - L groin tenderness still present, but not as acute today. Plan: - Transfusion plts today - Rx kleb sepsis - Endoscopy when medically stable - Because of his low WBC and plts, I would hold off for the time being. Subjective: Dizziness resolved. Feels better. No black stools. Objective: Vital Signs Temp Pulse Resp BP Pulse Ox 36.8 C 78 16 142/68 H 92 07/13/16 04:00 07/13/16 04:00 07/13/16 04:00 07/13/16 04:00 07/13/16 04:00 Laboratory Results 07/13/16 06:10 07/11/16 06:00 07/11/16 07/12/16 07/13/16 23:59 23:59 23:59 Intake Total 5891 3177 1314 Output Total 2775 3745 1175 Balance 3116 -568 139 PT 13.4 SEC (12.0-15.0) 07/10/16 23:47 INR 1.03 (0.83-1.16) 07/10/16 23:47 Physical Exam - Physical Exam General Appearance: alert, no apparent distress Respiratory: lungs clear Cardiac/Chest: regular rate, rhythm Abdomen: normal bowel sounds, soft Skin: warm/dry Neuro/Psych: normal mood/affect, oriented x 3 ICD10 Worksheet Patient Problems: Problems Problem Status Onset Neutropenic fever Acute Sepsis Acute History of lymphoma Chronic 12/18/14 Cellulitis Acute 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
[2016-07-13] MEDS: PANTOPRAZOLE SODIUM 40 MG in NS 100 ML IV SCH ×2 (10:18→21:28)
[2016-07-13] MEDS: CYANO/VITAMIN B12 1000 MCG TAB PO SCH (10:18)
[2016-07-13] MEDS: VITAMIN B COMPLEX 1 EA CAP/TAB PO SCH (10:18)
[2016-07-13] MEDS: [UNRECOGNIZED DRUG - MIXTURE] PO SCH ×5 (10:25→21:29)
--- NOTE | 2016-07-13 10:30 | HOSPPROG ---
Hospitalist Progress Note Assessment/Plan: 65 yo M w lymphoma here w febrile neutropenia, klebsiella bacteremia and anemia bacteremia: source is GI vs lungs (cxr clear on admit; interp by me) klebsiella largely pansens; suspect can change abx to cefazolin or ceftriaxone will leave this to ID repeat cx pending acute blood loss anemia: no signs ongoing blood loss, no further black stool given that he has stopped bleeding and remains profoundly neutropenic, will hold off on egd for now continue ppi neutropenia: wbc rising, but slowly on abx, afebrile continue precautions rigors: none further prn demerol thrombocytopenia: 2/2 chemo, lymphoma platelets 16 today- give platelets proph: pharm VTE proph contraindicated risk: high Subjective: afebrile. no black or bloody stool. case d/w ruthann marie Objective: Vital Signs Temp Pulse Resp BP Pulse Ox 36.8 C 78 16 142/68 H 92 07/13/16 04:00 07/13/16 04:00 07/13/16 04:00 07/13/16 04:00 07/13/16 04:00 Laboratory Results 07/13/16 06:10 07/11/16 06:00 07/12/16 07/13/16 07/14/16 05:59 05:59 05:59 Intake Total 3667 2894 Output Total 3550 3445 200 Balance 117 -551 -200 PT 13.4 SEC (12.0-15.0) 07/10/16 23:47 INR 1.03 (0.83-1.16) 07/10/16 23:47 - Physical Exam Constitutional: no apparent distress, appears nourished Eyes: PERRL, anicteric sclera Ears, Nose, Mouth, Throat: moist mucous membranes, hearing normal Cardiovascular: regular rate and rhythym, no murmur, rub, or gallop Respiratory: no respiratory distress, no rales or rhonchi Gastrointestinal: normoactive bowel sounds, soft, non-tender abdomen, No guarding, No rebound Genitourinary: no bladder fullness, No bolanos in urethra Skin: warm, normal color Musculoskeletal: full muscle strength, no muscle tenderness Neurologic: AAOx3 Psychiatric: interacting appropriately Lymph, Heme, Immunologic: no cervical LAD ICD10 Worksheet Patient Problems: Problems Problem Status Onset Neutropenic fever Acute Sepsis Acute History of lymphoma Chronic 12/18/14 Cellulitis Acute 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
[2016-07-13] MEDS: D5W 1/2 NS W/ 20 KCl/L 1,000 ML IV SCH (20:04)
--- NOTE | 2016-07-13 20:08 | PCMIDPN ---
Assessment/Plan: Assessment/Plan: * Klebsiella pneumoniae bacteremia in the setting of neutropenic fever and recent upper GI bleed: Clinically improved with resolution of fever. Remains profoundly neutropenic. Port site is nontender and repeat blood cultures are pending to assess for clearing of bacteremia. Will change cefepime to ceftriaxone based on susceptibility profile of Klebsiella pneumoniae. 07/13/16 20:05 Subjective: Patient complains of occasional abdominal discomfort. No nausea, vomiting or diarrhea. No pain over port. Objective: Vital Signs Temp Pulse Resp BP Pulse Ox 36.7 C 80 20 132/80 H 94 07/13/16 16:00 07/13/16 16:00 07/13/16 16:00 07/13/16 16:00 07/13/16 16:00 Laboratory Results 07/13/16 06:10 07/11/16 06:00 07/12/16 07/13/16 07/14/16 05:59 05:59 05:59 Intake Total 3667 2894 1700 Output Total 3550 3445 1550 Balance 117 -551 150 Cefepime # 2 Blood cultures with growth of Klebsiella pneumoniae which is resistant to ampicillin and susceptible to all other agents Blood cultures 07/13/2016 pending - Physical Exam General Appearance: alert, no apparent distress EENT: No scleral icterus, No thrush, No conjunctival petechiae Respiratory: lungs clear, No respiratory distress Cardiac/Chest: regular rate, rhythm, other (Port nontender without erythema), No systolic murmur Extremities: No inflammation Abdomen: non-tender, No distended Skin: No embolic lesions ICD10 Worksheet Patient Problems: Problems Problem Status Onset Neutropenic fever Acute Sepsis Acute History of lymphoma Chronic 12/18/14 Cellulitis Acute 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
[2016-07-13] MEDS: cefTRIAXone 2 GM in D5W 50 ML IV SCH (21:23)
[2016-07-13] MEDS: ACETAMINOPHEN 325 MG TAB PO PRN (23:22)
[2016-07-14] MEDS: GABAPENTIN 300 MG CAP PO SCH ×4 (05:29→20:34)
[2016-07-14 06:05] LABS: ADD MORPH? NO; ATYPICAL LYMPHOCYTE FLAG 60 (0-99); FRAGMENT RBC FLAG 0 (0-99); HEMATOCRIT 32.2 % (40.0-51.0); HEMOGLOBIN 11.5 g/dL (13.7-17.5); LIPEMIA HEMOLYSIS FLAG 90 (0-99); MEAN CELL HEMOGLOBIN CONCENTR. 35.7 g/dL (32.4-36.7); MEAN CELL VOLUME 89.7 fL (81.5-99.8); MEAN PLATELET VOLUME 10.6 fL (8.7-11.7); PLATELET CLUMPS FLAG 0 (0-99); RED BLOOD CELL COUNT 3.59 10^6/uL (4.40-6.38); RED CELL DISTRIBUTION WIDTH 14.1 % (11.5-15.2)
[2016-07-14 06:18] LABS: PLATELET COUNT 38 10^3/uL (150-400)
[2016-07-14 06:20] LABS: ADD SCAN? NO
[2016-07-14 06:49] LABS: ADD DIFF? NO
[2016-07-14] MEDS: VITAMIN B COMPLEX 1 EA CAP/TAB PO SCH (08:37)
[2016-07-14] MEDS: PANTOPRAZOLE SODIUM 40 MG in NS 100 ML IV SCH ×2 (08:37→20:34)
[2016-07-14] MEDS: CYANO/VITAMIN B12 1000 MCG TAB PO SCH (08:37)
[2016-07-14] MEDS: [UNRECOGNIZED DRUG - MIXTURE] PO SCH ×4 (09:26→21:01)
--- NOTE | 2016-07-14 10:16 | HOSPPROG ---
Hospitalist Progress Note Assessment/Plan: 65 yo M w lymphoma here w febrile neutropenia, klebsiella bacteremia and anemia drug rash: this rash is almost certainly a drug rash. has been on 2 cephalosporins in last few days discussed w ID will likely switch to FQ bacteremia: source is GI vs lungs (cxr clear on admit; interp by me) klebsiella largely pansens; suspect can change abx to cefazolin or ceftriaxone will leave this to ID repeat cx neg thus far acute blood loss anemia: no signs ongoing blood loss, no further black stool given that he has stopped bleeding and remains profoundly neutropenic, will hold off on egd for now continue ppi neutropenia: wbc rising, but slowly on abx, afebrile continue precautions rigors: none further prn demerol thrombocytopenia: 2/2 chemo, lymphoma platelets 38 today follow daily proph: pharm VTE proph contraindicated risk: high Subjective: afebrile. case d/w dr taylor. erythematous rash on trunk Objective: Vital Signs Temp Pulse Resp BP Pulse Ox 36.7 C 87 17 129/72 H 94 07/14/16 08:00 07/14/16 08:00 07/14/16 08:00 07/14/16 08:00 07/14/16 08:00 Laboratory Results 07/14/16 05:30 07/11/16 06:00 07/13/16 07/14/16 07/15/16 05:59 05:59 05:59 Intake Total 2894 3400 Output Total 3445 3700 Balance -551 -300 PT 13.4 SEC (12.0-15.0) 07/10/16 23:47 INR 1.03 (0.83-1.16) 07/10/16 23:47 - Physical Exam Constitutional: no apparent distress, appears nourished Eyes: PERRL, anicteric sclera Ears, Nose, Mouth, Throat: moist mucous membranes, hearing normal Cardiovascular: regular rate and rhythym, no murmur, rub, or gallop, No systolic murmur Respiratory: no respiratory distress, no rales or rhonchi Gastrointestinal: normoactive bowel sounds, soft, non-tender abdomen Genitourinary: No bolanos in urethra Skin: other (eruthematous macular blacnhing rash on trunk) Musculoskeletal: full muscle strength, no muscle tenderness Neurologic: AAOx3, sensation intact bilaterally Psychiatric: interacting appropriately ICD10 Worksheet Patient Problems: Problems Problem Status Onset Neutropenic fever Acute Sepsis Acute History of lymphoma Chronic 12/18/14 Cellulitis Acute 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
[2016-07-14] MEDS: cefTRIAXone 2 GM in D5W 50 ML IV SCH (10:53)
--- NOTE | 2016-07-14 11:08 | PCMIDPN ---
Assessment/Plan: # Neutropenic fever secondary Klebsiella bacteremia, likely GI source with recent GI bleed. Continues to have neutropenia, but is afebrile. Blood cultures from 07/13 remain negative --drug rash developed overnight, likely etiology cephalosporin . Discontinue Rocephin, added to allergy list --will complete therapy with fluoroquinolone, Klebsiella only resistant to ampicillin # Mucositis - slight worse today, likely related to neutropenia # Drug rash - likely to ceftriaxone/cefepime --change to FQ as above Medications, abx #3 ceftriaxone IV Subjective: Patient's main complaint is related to mild oral pain and new pruritic rash which started in the left groin and now is on the trunk and arms. Objective: Vital Signs Temp Pulse Resp BP Pulse Ox 36.7 C 87 17 129/72 H 94 07/14/16 08:00 07/14/16 08:00 07/14/16 08:00 07/14/16 08:00 07/14/16 08:00 Laboratory Results 07/14/16 05:30 07/11/16 06:00 07/13/16 07/14/16 07/15/16 05:59 05:59 05:59 Intake Total 2894 3400 Output Total 3445 3700 600 Balance -551 300 600 General: Nontoxic-appearing male sitting up in a chair HEENT skin: Several oral ulcerations, no exudate, dentition okay Neck supple Cardiovascular regular rate no murmur chest: Clear to auscultation bilaterally Abdomen: Soft nontender bowel sounds present Extremities no clubbing cyanosis or edema Skin patient with maculopapular eruption on his trunk left greater than right and his bilateral forearms and left upper thigh consistent with drug rash Neurologically alert and oriented x4 moving all 4 extremities equally ICD10 Worksheet Patient Problems: Problems Problem Status Onset Neutropenic fever Acute Sepsis Acute History of lymphoma Chronic 12/18/14 Cellulitis Acute 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
--- NOTE | 2016-07-14 14:48 | SOAPPROG ---
SOAP Progress Note Assessment/Plan: Assessment: 1. GI Bleed - no fresh bleeding. Stools normal in color per patient. Hgb is stable at 11.4 today. No txn PRBC needed today. 2. Thrombocytopenia - 38k today. No plt txn needed today 3. Klebsiella sepsis - Has a drug rash. Abx changed to PO Levaquin per ID. 4. Neutropenia - still profound with WBC 0.17 today 5. Lymphoma - markedly decreased L groin tenderness Plan: - Levaquin - Monitor counts - Still needs endoscopy at some point Subjective: Anxious to go home when that is possible. Objective: Vital Signs Temp Pulse Resp BP Pulse Ox 36.7 C 87 17 129/72 H 94 07/14/16 08:00 07/14/16 08:00 07/14/16 08:00 07/14/16 08:00 07/14/16 08:00 Laboratory Results 07/14/16 05:30 07/11/16 06:00 07/12/16 07/13/16 07/14/16 23:59 23:59 23:59 Intake Total 3177 3014 1700 Output Total 3745 3425 1850 Balance -568 -411 -150 PT 13.4 SEC (12.0-15.0) 07/10/16 23:47 INR 1.03 (0.83-1.16) 07/10/16 23:47 Physical Exam - Physical Exam General Appearance: alert, mild distress Respiratory: lungs clear Cardiac/Chest: regular rate, rhythm Abdomen: normal bowel sounds, soft Skin: pallor, rash (diffuse macular) Neuro/Psych: normal mood/affect, oriented x 3 ICD10 Worksheet Patient Problems: Problems Problem Status Onset Neutropenic fever Acute Sepsis Acute History of lymphoma Chronic 12/18/14 Cellulitis Acute 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
[2016-07-15 04:27] LABS: ADD MORPH? NO; ADD SCAN? NO; ATYPICAL LYMPHOCYTE FLAG 60 (0-99); FRAGMENT RBC FLAG 0 (0-99); HEMATOCRIT 33.8 % (40.0-51.0); HEMOGLOBIN 12.1 g/dL (13.7-17.5); LEFT SHIFT FLG 60 (0-99); LIPEMIA HEMOLYSIS FLAG 90 (0-99); MEAN CELL HEMOGLOBIN 31.3 pg (27.9-34.1); MEAN CELL HEMOGLOBIN CONCENTR. 35.8 g/dL (32.4-36.7); MEAN CELL VOLUME 87.6 fL (81.5-99.8); MEAN PLATELET VOLUME 10.8 fL (8.7-11.7); PLATELET CLUMPS FLAG 0 (0-99); RED BLOOD CELL COUNT 3.86 10^6/uL (4.40-6.38); RED CELL DISTRIBUTION WIDTH 13.8 % (11.5-15.2)
[2016-07-15 04:29] LABS: PLATELET COUNT 36 10^3/uL (150-400)
[2016-07-15 04:31] LABS: ADD DIFF? NO
[2016-07-15 04:58] LABS: PLATELET ESTIMATE DECREASED (ADEQ)
[2016-07-15 05:57] LABS: ANION GAP 8 mEq/L (8-16); CALCIUM 8.9 mg/dL (8.5-10.4); CARBON DIOXIDE 25 mEq/l (22-31); CHLORIDE 107 mEq/L (97-110); CREATININE 0.6 mg/dL (0.7-1.3); GLOMERULAR FILTRATION RATE > 60; GLUCOSE 111 mg/dL (70-100); POTASSIUM 4.1 mEq/L (3.5-5.2); SODIUM 140 mEq/L (134-144)
[2016-07-15] MEDS: GABAPENTIN 300 MG CAP PO SCH ×4 (06:58→20:37)
[2016-07-15] MEDS: VITAMIN B COMPLEX 1 EA CAP/TAB PO SCH (09:24)
[2016-07-15] MEDS: CYANO/VITAMIN B12 1000 MCG TAB PO SCH (09:25)
[2016-07-15] MEDS: [UNRECOGNIZED DRUG - MIXTURE] PO SCH ×3 (09:26→20:37)
--- NOTE | 2016-07-15 11:15 | SOAPPROG ---
SOAP Progress Note Assessment/Plan: Assessment: 1. GI Bleed - no fresh bleeding. Stools normal in color per patient. Hgb is stable at 12.1 today. No txn PRBC needed today. 2. Thrombocytopenia - 36k today. No plt txn needed today 3. Klebsiella sepsis - Has a drug rash. Abx changed to PO Levaquin per ID. 4. Neutropenia - better with WBC 0..49 today 5. Lymphoma - markedly decreased L groin tenderness Plan: - Levaquin - Monitor counts - Still needs endoscopy at some point - possibly home next few days 07/15/16 11:11 07/15/16 11:14 Subjective: Feels ok Objective: Vital Signs Temp Pulse Resp BP Pulse Ox 98.0 F 88 16 130/76 H 94 07/15/16 08:00 07/15/16 08:00 07/15/16 08:00 07/15/16 08:00 07/15/16 08:00 Laboratory Results 07/15/16 03:58 07/15/16 03:58 07/14/16 07/15/16 07/16/16 05:59 05:59 05:59 Intake Total 3400 500 Output Total 3700 2350 Balance -300 -1850 PT 13.4 SEC (12.0-15.0) 07/10/16 23:47 INR 1.03 (0.83-1.16) 07/10/16 23:47 Physical Exam - Physical Exam General Appearance: alert, no apparent distress Respiratory: lungs clear Cardiac/Chest: regular rate, rhythm Abdomen: normal bowel sounds, non-tender ICD10 Worksheet Patient Problems: Problems Problem Status Onset Neutropenic fever Acute Sepsis Acute History of lymphoma Chronic 12/18/14 Cellulitis Acute 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
--- NOTE | 2016-07-15 11:33 | HOSPPROG ---
Hospitalist Progress Note Assessment/Plan: 65 yo M w lymphoma here w febrile neutropenia, klebsiella bacteremia and anemia drug rash: this rash is almost certainly a drug rash. has been on 2 cephalosporins in last few days discussed w ID decreasing on levofloxacin reasonable to call cephalosporins a drug allergy bacteremia: source is GI vs lungs (cxr clear on admit; interp by me) klebsiella largely pansens; on levoflox 14 days of therapy (from first neg cultures) would be through 07/26 today day 3 acute blood loss anemia: no signs ongoing blood loss, no further black stool given that he has stopped bleeding and remains profoundly neutropenic, will hold off on egd for now continue ppi neutropenia: wbc rising, but slowly on abx, afebrile continue precautions rigors: none further prn demerol thrombocytopenia: 2/2 chemo, lymphoma platelets 38 today follow daily proph: pharm VTE proph contraindicated risk: high Subjective: rash improving. case d/w Dr. Barrera Objective: Vital Signs Temp Pulse Resp BP Pulse Ox 36.7 C 88 16 130/76 H 94 07/15/16 08:00 07/15/16 08:00 07/15/16 08:00 07/15/16 08:00 07/15/16 08:00 Laboratory Results 07/15/16 03:58 07/15/16 03:58 07/14/16 07/15/16 07/16/16 05:59 05:59 05:59 Intake Total 3400 500 Output Total 3700 2350 Balance -300 -1850 PT 13.4 SEC (12.0-15.0) 07/10/16 23:47 INR 1.03 (0.83-1.16) 07/10/16 23:47 - Physical Exam Constitutional: no apparent distress, appears nourished Eyes: PERRL, anicteric sclera Ears, Nose, Mouth, Throat: moist mucous membranes, hearing normal Cardiovascular: regular rate and rhythym, no murmur, rub, or gallop Respiratory: no respiratory distress, no rales or rhonchi Gastrointestinal: normoactive bowel sounds Genitourinary: No bolanos in urethra Skin: warm, other (erythamtous macular blanching eash on trunk decreased in distribution and intensity) Musculoskeletal: full muscle strength, no muscle tenderness Neurologic: AAOx3, sensation intact bilaterally Psychiatric: interacting appropriately ICD10 Worksheet Patient Problems: Problems Problem Status Onset Neutropenic fever Acute Sepsis Acute History of lymphoma Chronic 12/18/14 Cellulitis Acute 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
--- NOTE | 2016-07-15 11:43 | PCMIDPN ---
Assessment/Plan: # Neutropenic fever secondary Klebsiella bacteremia, likely GI source with recent GI bleed. Continues to have neutropenia, is afebrile - noticeable improvement in WBC today. Blood cultures from 07/13 remain negative --will complete therapy with levofloxacin 750mg daily, Klebsiella only resistant to ampicillin, total of 14 days of therapy. Stop date 07/26/16 --okay to dc tomorrow prior to ID rounds, ID follow up not needed # Mucositis - stable # Drug rash - likely to ceftriaxone/cefepime. Improved today. Added to allergies --changed to FQ as above Medications, abx #4 levoflox 750mg daily Subjective: wanting to increase ambulation no abdominal pain, denies side effect to Levaquin Rash remain itchy Objective: Vital Signs Temp Pulse Resp BP Pulse Ox 36.7 C 88 16 130/76 H 94 07/15/16 08:00 07/15/16 08:00 07/15/16 08:00 07/15/16 08:00 07/15/16 08:00 Laboratory Results 07/15/16 03:58 07/15/16 03:58 07/14/16 07/15/16 07/16/16 05:59 05:59 05:59 Intake Total 3400 500 Output Total 3700 2350 Balance -300 -1850 Gen: remarkably well appearing male NAD o/p scattered ulceration CV RRR no murmur Chest clear B Abd: soft NT +BS Skin: MP eruption significantly faded L groin, L lateral chest wall, ruddier appearance today ICD10 Worksheet Patient Problems: Problems Problem Status Onset Neutropenic fever Acute Sepsis Acute History of lymphoma Chronic 12/18/14 Cellulitis Acute 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
[2016-07-15] MEDS: PANTOPRAZOLE SODIUM 40 MG TAB PO SCH ×2 (12:32→20:37)
[2016-07-15 16:14] VITALS: RESP 16
[2016-07-15] MEDS: PANTOPRAZOLE SODIUM 40 MG in NS 100 ML IV SCH (17:23)
[2016-07-16] MEDS: GABAPENTIN 300 MG CAP PO SCH ×2 (06:22→12:00)
[2016-07-16 06:34] LABS: ADD DIFF? YES; ADD MORPH? NO; ADD SCAN? NO; ATYPICAL LYMPHOCYTE FLAG 60 (0-99); FRAGMENT RBC FLAG 0 (0-99); HEMATOCRIT 33.4 % (40.0-51.0); HEMOGLOBIN 11.8 g/dL (13.7-17.5); LEFT SHIFT FLG 30 (0-99); LIPEMIA HEMOLYSIS FLAG 90 (0-99); MEAN CELL HEMOGLOBIN 31.6 pg (27.9-34.1); MEAN CELL HEMOGLOBIN CONCENTR. 35.3 g/dL (32.4-36.7); MEAN CELL VOLUME 89.5 fL (81.5-99.8); MEAN PLATELET VOLUME 11.2 fL (8.7-11.7); PLATELET CLUMPS FLAG 0 (0-99); RED BLOOD CELL COUNT 3.73 10^6/uL (4.40-6.38); RED CELL DISTRIBUTION WIDTH 13.5 % (11.5-15.2)
[2016-07-16 06:36] LABS: PLATELET COUNT 46 10^3/uL (150-400)
[2016-07-16 06:46] LABS: ANION GAP 9 mEq/L (8-16); CALCIUM 8.7 mg/dL (8.5-10.4); CARBON DIOXIDE 26 mEq/l (22-31); CHLORIDE 106 mEq/L (97-110); CREATININE 0.6 mg/dL (0.7-1.3); GLOMERULAR FILTRATION RATE > 60; GLUCOSE 105 mg/dL (70-100); POTASSIUM 4.1 mEq/L (3.5-5.2); SODIUM 141 mEq/L (134-144)
[2016-07-16 07:48] LABS: PLATELET ESTIMATE DECREASED (ADEQ)
[2016-07-16 09:05] VITALS: BP 126/58; PULSE 86; TEMP 98.2; O2SAT 94
[2016-07-16] MEDS: [UNRECOGNIZED DRUG - MIXTURE] PO SCH ×2 (09:48→10:12)
[2016-07-16] MEDS: CYANO/VITAMIN B12 1000 MCG TAB PO SCH (09:51)
[2016-07-16] MEDS: PANTOPRAZOLE SODIUM 40 MG TAB PO SCH (09:51)
[2016-07-16] MEDS: VITAMIN B COMPLEX 1 EA CAP/TAB PO SCH (09:51)
--- NOTE | 2016-07-16 09:55 | HOSPPROG ---
Hospitalist Progress Note Assessment/Plan: 65 yo M w lymphoma here w febrile neutropenia, klebsiella bacteremia and anemia drug rash: this rash is almost certainly a drug rash. has been on 2 cephalosporins in last few days discussed w ID decreasing on levofloxacin reasonable to call cephalosporins a drug allergy rec bendryl cream bacteremia: source is GI vs lungs (cxr clear on admit; interp by me) klebsiella largely pansens; on levoflox 14 days of therapy (from first neg cultures) would be through 07/26 today day 3 acute blood loss anemia: no signs ongoing blood loss, no further black stool given that he has stopped bleeding and remains profoundly neutropenic, will hold off on egd for now continue ppi neutropenia: wbc rising, but slowly on abx, afebrile continue precautions rigors: none further prn demerol thrombocytopenia: 2/2 chemo, lymphoma platelets 38 today follow daily proph: pharm VTE proph contraindicated risk: high dispo: home today > 30 minutes Subjective: feels great. afebrile Objective: Vital Signs Temp Pulse Resp BP Pulse Ox 36.8 C 86 16 126/58 H 94 07/16/16 09:00 07/16/16 09:00 07/16/16 09:00 07/16/16 09:00 07/16/16 09:00 Laboratory Results 07/16/16 06:25 07/16/16 06:25 07/15/16 07/16/16 07/17/16 05:59 05:59 05:59 Intake Total 500 500 Output Total 2350 1250 Balance -1850 -750 PT 13.4 SEC (12.0-15.0) 07/10/16 23:47 INR 1.03 (0.83-1.16) 07/10/16 23:47 - Physical Exam Constitutional: no apparent distress, appears nourished Eyes: PERRL, anicteric sclera Ears, Nose, Mouth, Throat: moist mucous membranes, hearing normal Cardiovascular: regular rate and rhythym, no murmur, rub, or gallop Respiratory: no respiratory distress, no rales or rhonchi Gastrointestinal: normoactive bowel sounds, soft, non-tender abdomen Genitourinary: No bolanos in urethra Skin: warm, other (rash on trunk diminished. 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
--- NOTE | 2016-07-16 10:20 | GDS ---
DISCHARGE DIAGNOSES: 1. Febrile neutropenia. 2. Klebsiella bacteremia. 3. Lymphoplasmacytic lymphoma with Villanueva transformation. 4. Suspected upper gastrointestinal bleed. 5. Thrombocytopenia. 6. Acute blood loss anemia status post 4 units of packed red cells. 7. Thrombocytopenia status post platelet transfusion. 8. New cephalosporin allergy with drug rash. No oropharyngeal symptoms. HOSPITAL COURSE: Please see admission history by Dr. John Joyce. The patient presented overnight on the to with rigors, shaking chills, found to have diarr hea. It was dark. Blood cultures were drawn, which grew out pansensitive Klebsiella other than resistance to ampicilli n. The source was felt to be GI. There was discussion of endoscopy given his dark stool on arrival and a hemoglobin 5.6 at its lowest. Given the neutropenia and the rapid resolution of his bleeding with PPI alone, EGD was forewent. This was discussed with the sr technical sales consultant. The patient is discharged on a b.i.d. PPI for 1 month. Certainly, if he has recurrent bleeding, then an EGD would be indicated. Regarding his bacteremia, blood cultures came positive relatively quickly. Surveillance cultures we re negative. He was initially treated with cefepime. Transition to ceftriaxone with sensitivities returned, development of drug rash about the . Antibiotics were changed to levofloxacin. The p atient is currently tolerating that well. DISCHARGE MEDICATIONS: He is discharged home with oral antibiotics and b.i.d. PPI. FOLLOW UP: Outpatient Oncology followup. /[id number]/MODL
--- NOTE | 2016-07-16 11:17 | SOAPPROG ---
SOAP Progress Note Assessment/Plan: Assessment: 1. GI Bleed - no fresh bleeding. Stools normal in color per patient. Hgb is stable. 2. Thrombocytopenia - 46k today. No plt txn needed today 3. Klebsiella sepsis - Has a drug rash. Abx changed to PO Levaquin per ID. 4. Neutropenia - continues to improve 5. Lymphoma - markedly decreased L groin tenderness Plan: - Levaquin - Home today with PPI, follow up scheduled at [facility], may need [facility] endo at some point 07/15/16 11:11 07/15/16 11:14 07/16/16 11:15 Subjective: Feels ok, wants to go home Objective: Vital Signs Temp Pulse Resp BP Pulse Ox 98.2 F 86 16 126/58 H 94 07/16/16 09:00 07/16/16 09:00 07/16/16 09:00 07/16/16 09:00 07/16/16 09:00 Laboratory Results 07/16/16 06:25 07/16/16 06:25 07/15/16 07/16/16 07/17/16 05:59 05:59 05:59 Intake Total 500 500 Output Total 2350 1250 Balance -1850 -750 PT 13.4 SEC (12.0-15.0) 07/10/16 23:47 INR 1.03 (0.83-1.16) 07/10/16 23:47 ICD10 Worksheet Patient Problems: Problems Problem Status Onset Neutropenic fever Acute Sepsis Acute History of lymphoma Chronic 12/18/14 Cellulitis Acute 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
--- NOTE | 2016-07-19 11:39 | PQFORM ---
PHYSICIAN QUERY FORM Needs Your Response This query form is being sent to you to assure this patient record is coded properly. 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 Glaser, In reviewing this patient medical record it is noted the patient was had the diagnosed of 'Klebsiella Sepsis bacteremia'. The patient presented with a fever of 102.5, heart rate of 113H, and WBC of 0.04. In Dr. Ayoub's consultation report the patient is documented with the diagnosis of 'Klebsiella sepsis bacteremia.' In the SOAP progress notes dated 07/12-07/16 the patient was diagnosis of 'Klebsiella sepsis, sensitive to everything except ampicillin.' After study, should the diagnosis of 'Sepsis due to klebsiella bacteremia' be included in the discharge summary? Yes __X____ No Other more appropriate diagnosis Unable to determine Thank you NNEKA Rojas HIM/Coding Dept. [phone] INSTRUCTIONS FOR RESPONSE: Answer question by clicking on the "Edit Document" button. Move cursor to area below the stars. When complete, hit "Save." Click on the "Sign" button, then click "Sign" again. Type in your PIN and hit "Enter." MTDD
== END 2016-07-16 14:04 | disposition home or self-care (01) | DRG 872 ==
LOC: F1N 07-11 02:13
PROVIDERS: ADMIT Family Medicine; ATTEND Family Medicine
DX: A41.89 Other specified sepsis (principal); D70.9 Neutropenia, unspecified; C83.00 Small cell B-cell lymphoma, unspecified site; K92.2 Gastrointestinal hemorrhage, unspecified; D62 Acute posthemorrhagic anemia; B96.1 Klebsiella pneumoniae [K. pneumoniae] as the cause of diseases classified elsewhere; D69.59 Other secondary thrombocytopenia; L27.0 Generalized skin eruption due to drugs and medicaments taken internally; K12.30 Oral mucositis (ulcerative), unspecified; T36.1X5A Adverse effect of cephalosporins and other beta-lactam antibiotics, initial encounter; G62.9 Polyneuropathy, unspecified; I25.2 Old myocardial infarction; Z86.718 Personal history of other venous thrombosis and embolism; Z87.891 Personal history of nicotine dependence; Z66 Do not resuscitate
CPT/HCPCS: 96365; 97110-GP; 97116-GP; 97161-GP; 97165-GO; 97530-GO; 97535-GO; G8978-GP-CJ; G8979-GP-CI; J0692; J0696; J1200; J3370; P9016; P9035

== ENCOUNTER → 2016-08-22 | Outpatient (CLI) | payer MEDICAID | LOC: FIMAGING 13:15 | PROVIDERS: ATTEND Internal Medicine Hematology & Oncology | DX: R22.42 Localized swelling, mass and lump, left lower limb (principal); Z85.71 Personal history of Hodgkin lymphoma; Z95.820 Peripheral vascular angioplasty status with implants and grafts; C88.0 Waldenstrom macroglobulinemia ==

== ENCOUNTER → 2016-10-24 | Outpatient (CLI) | payer MEDICAID ==
[~2016-10-24] MED LIST changes: +ACETAMINOPHEN 325 MG TAB PO ONE; +FUROSEMIDE 20 MG/2 ML VIAL IVP ONE; +HEPARIN 10,000 UNIT/10 ML MDV IVP ONE; -LIDOCAINE 1% 30 ML SDV ONE; -NA BICARBONATE 50 MEQ/50 ML VIAL ONE; -[UNRECOGNIZED DRUG - MIXTURE] IT ONE; +diphenhydrAMINE 25 MG CAP PO ONE; +traMADol 50 MG TAB PO ONE
== END ==
LOC: EDSTATUS 07:30 → FOBOP 11:03
PROVIDERS: ATTEND Internal Medicine Hematology & Oncology
PROC: 30233N1 Transfusion of Nonautologous Red Blood Cells into Peripheral Vein, Percutaneous Approach (ICD-10-PCS; principal; 2016-10-24)
DX: C85.90 Non-Hodgkin lymphoma, unspecified, unspecified site (principal)
CPT/HCPCS: 36430; P9016; J1642; J1940